=== PATIENT | male | born 1955 | race Native Hawaiian/Other Pacific Islander ===

== ENCOUNTER 2022-07-05 13:57 | Emergency (ER) | payer MEDICARE ==
--- NOTE | 2022-07-05 14:06 | ERPHSYRPT ---
- History of Present Illness Time Seen by Provider: 07/05/22 14:06 Source: patient Exam Limitations: no limitations Physician History: This is a 67-year-old white male patient who was brought into the emergency department by family member because of dizziness followed by lethargy since prior to evaluation in the emergency department. According to the patient and to the patient's spouse, the patient ate well last night and was his normal usual self and also woke up this morning and was himself and had an egg for breakfast. However, his noticed, prior to arrival, that he was out doors and wandering somewhat. When she brought him inside he said he was not feeling right and he stated he was just very tired. He did not fall or hit his head per his recollection. He is on no medication. He has not been prescribed any new medications. He was recently evaluated for "breathing problems". Patient does smoke approximately 1 pack of cigarettes to 1-1/2 pack of cigarettes per day. He denies illicit drug use. He has no chest pain. He has no abdominal pain. He has no nausea vomiting or diarrhea. The 2 symptoms he states he has are dizziness and fatigue Timing/Duration: today Severity: moderate Character of Deficits: none Deficits: no difficulties Baseline/Normal Cognition: alert oriented x 3 Current Cognition: alert oriented x 3 Baseline Gait: walks w/o assistance Associated Symptoms: fatigue Allergies/Adverse Reactions: No Known Drug Allergies Allergy (Verified 07/05/22 14:17) Home Medications: No Reportable Medications [No Reported Medications] 07/05/22 [History] Travel Risk - International Travel Have you traveled outside of the country in past 3 weeks: No - Coronavirus Screening Are you exhibiting any of the following symptoms?: No Close contact with a COVID-19 positive Pt in past 14-21 Days: No - Review of Systems Constitutional: Weakness Eyes: No Symptoms Ears, Nose, & Throat: Other Respiratory: No Symptoms Cardiac: No Symptoms Abdominal/Gastrointestinal: No Symptoms Genitourinary Symptoms: No Symptoms Musculoskeletal: No Symptoms Skin: No Symptoms Neurological: Dizziness, Lethargy Psychological: No Symptoms Endocrine: No Symptoms Hematologic/Lymphatic: No Symptoms Immunological/Allergic: No Symptoms All Other Systems: Reviewed and Negative - Past Medical History Pertinent Past Medical History: No - Past Surgical History Past Surgical History: Yes - Nursing Vital Signs Nursing Vital Signs: Initial Vital Signs Temperature 96.8 F 07/05/22 13:59 Pulse Rate 66 07/05/22 13:59 Respiratory Rate 29 H 07/05/22 13:59 Blood Pressure 105/71 07/05/22 13:59 O2 Sat by Pulse Oximetry 93 L 07/05/22 13:59 Pain Scale Pain Intensity 0 - [place] Coma Scale Best Eye Response (Ann): (3) open to voice Best Verbal Response ([place]): (5) oriented Best Motor Response ([place]): (6) obeys commands Ann Total: 14 - Physical Exam General Appearance: lethargy, thin Eye Exam: bilateral eye: normal inspection, PERRL, EOMI Ears, Nose, Throat Exam: dry mucous membranes Neck Exam: normal inspection, non-tender, supple, full range of motion Respiratory: normal breath sounds, lungs clear, airway intact, No chest tenderness, No respiratory distress Cardiovascular: regular rate/rhythm, normal heart sounds, normal peripheral pulses Gastrointestinal: soft, normal bowel sounds, No tenderness Rectal Exam: not done Back Exam: normal inspection, normal range of motion, No CVA tenderness, No vertebral tenderness Extremity Exam: normal inspection, normal range of motion, pelvis stable Mental Status: oriented x 3, cooperative, 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 07/05/22 14:11 Active Clean Catch Urine Specimen STAT Care 07/05/22 14:10 Active EKG-ER Only STAT Care 07/05/22 14:10 Active IV Insertion STAT Care 07/05/22 14:10 Active POCT Glucose Check STAT Care 07/05/22 14:10 Active HEAD WITHOUT CONTRAST [CT] Stat Exams 07/05/22 14:11 Completed ABG [ARTERIAL BLOOD GASES] Stat Lab 07/05/22 15:00 Completed CBC W DIFF Stat Lab 07/05/22 14:16 Completed CMP Stat Lab 07/05/22 14:16 Completed ETHYL ALCOHOL Stat Lab 07/05/22 14:16 Completed MAGNESIUM Stat Lab 07/05/22 14:16 Completed TROPONIN Q4H Lab 07/05/22 14:16 Completed TROPONIN Q4H Lab 07/05/22 18:15 Ordered TROPONIN Q4H Lab 07/05/22 22:15 Ordered UA W/RFX UR CULTURE Stat Lab 07/05/22 14:29 Completed Urine Triage Profile Stat Lab 07/05/22 14:29 Completed Medication Summary Discontinued Medications Generic Name Dose Route Start Last Admin Trade Name Freq PRN Reason Stop Dose Admin Sodium Chloride 1,000 mls @ 999 mls/hr 07/05/22 15:33 07/05/22 17:27 Sodium Chloride 0.9% 1000 Ml IV 07/05/22 16:33 Infused .Q1H1M STA Infusion Sodium Chloride Confirm 07/05/22 16:11 Sodium Chloride 0.9% 1000 Ml Administered 07/05/22 16:12 Dose 1,000 mls @ ud .[facility] Lab/Rad Data: Laboratory Result Diagrams 07/05/22 14:16 07/05/22 14:16 Laboratory Results 07/05/22 07/05/22 07/05/22 Range/Units 15:00 14:30 14:30 WBC (4.0-10.5) x10^3/uL RBC (4.1-5.6) x10^6/uL Hgb (12.5-18.0) g/dL Hct (42-50) % MCV (78-100) fL MCH (26-32) pg MCHC (32-36) g/dL RDW (11.5-14.0) % Plt Count (150-450) x10^3/uL MPV (7.5-11.0) fL Gran % (36.0-66.0) % Immature Gran % (Auto) (0.00-0.4) % Nucleat RBC Rel Count (0.00-0.1) % Eos # (Auto) (0-0.5) x10^3/uL Immature Gran # (Auto) (0.00-0.03) x10^3u/L Absolute Lymphs (auto) (1.0-4.6) x10^3/uL Absolute Monos (auto) (0.0-1.3) x10^3/uL Absolute Nucleated RBC (0.00-0.01) x10^3u/L Lymphocytes % (24.0-44.0) % Monocytes % (0.0-12.0) % Eosinophils % (0.00-5.0) % Basophils % (0.0-0.4) % Absolute Granulocytes (1.4-6.9) x10^3/uL Basophils # (0-0.4) x10^3/uL Puncture Site RIGHT BRACHIAL pCO2 41 (35-45) mmHg pO2 64 L (75-100) mmHg Base Excess 3.3 H (-2.0-2.0) O2 Saturation 88.4 L (94-100) g/dF ABG pH 7.44 (7.35-7.45) ABG HCO3 27.8 (22-28) ABG O2 Sat (Measured) 95.5 (95-100) % Xavi Test NOT APPLICABLE A-a Gradient 34 a/A Ratio 0.65 Hemoglobin 14.6 Carboxyhemoglobin 6.3 (0.0-6.9) % THgb Methemoglobin 1.1 L (1.4-1.5) % Temperature 37.0 C POC O2 Flow Rate 21 % Sodium (137-145) mmol/L Potassium 4.0 (3.5-5.1) mmol/L Chloride (98-107) mmol/L Carbon Dioxide (22-30) mmol/L Anion Gap (5-15) MEQ/L BUN (9-20) mg/dL Creatinine (0.66-1.25) mg/dL Estimated GFR ML/MIN Glucose (74-106) mg/dL Calcium (8.4-10.2) mg/dL Magnesium (1.6-2.3) mg/dL Total Bilirubin (0.2-1.3) mg/dL AST (17-59) U/L ALT (0-50) U/L Alkaline Phosphatase (38-126) U/L Ammonia < 9 L (9-30) umol/L Troponin I (0.000-0.034) ng/mL Serum Total Protein (6.3-8.2) g/dL Albumin (3.5-5.0) g/dL Urine Color (Yellow) Urine Appearance (Clear) Urine pH (4.6-8.0) Ur Specific [place] (1.005-1.030) Urine Protein (Negative) Urine Glucose (UA) (Negative) mg/dL Urine Ketones (Negative) Urine Blood (Negative) Urine Nitrite (Negative) Urine Bilirubin (Negative) Urine Urobilinogen (0.2) mg/dL Ur Leukocyte Esterase (Negative) U Hyaline Cast (Auto) (0-2) /LPF Urine Microscopic RBC (0-5) /HPF Urine Microscopic WBC (0-5) /HPF Ur Epithelial Cells (None Seen) /HPF Urine Bacteria (None Seen) /HPF Urine Culture Reflexed (NO) Urine Opiates Level (NEGATIVE) Ur Methadone (NEGATIVE) Urine Barbiturates (NEGATIVE) Ur Phencyclidine (PCP) (NEGATIVE) Urine Amphetamine (NEGATIVE) U Benzodiazepine Level (NEGATIVE) Urine Cocaine (NEGATIVE) Urine Marijuana (THC) (NEGATIVE) Ethyl Alcohol (0-10) mg/dL Influenza Type A Ag NEGATIVE (NEGATIVE) Influenza Type B Ag NEGATIVE (NEGATIVE) RSV (PCR) NEGATIVE (NEGATIVE) SARS-CoV-2 (PCR) NEGATIVE (NEGATIVE) 07/05/22 07/05/22 07/05/22 Range/Units 14:29 14:29 14:16 WBC (4.0-10.5) x10^3/uL RBC (4.1-5.6) x10^6/uL Hgb (12.5-18.0) g/dL Hct (42-50) % MCV (78-100) fL MCH (26-32) pg MCHC (32-36) g/dL RDW (11.5-14.0) % Plt Count (150-450) x10^3/uL MPV (7.5-11.0) fL Gran % (36.0-66.0) % Immature Gran % (Auto) (0.00-0.4) % Nucleat RBC Rel Count (0.00-0.1) % Eos # (Auto) (0-0.5) x10^3/uL Immature Gran # (Auto) (0.00-0.03) x10^3u/L Absolute Lymphs (auto) (1.0-4.6) x10^3/uL Absolute Monos (auto) (0.0-1.3) x10^3/uL Absolute Nucleated RBC (0.00-0.01) x10^3u/L Lymphocytes % (24.0-44.0) % Monocytes % (0.0-12.0) % Eosinophils % (0.00-5.0) % Basophils % (0.0-0.4) % Absolute Granulocytes (1.4-6.9) x10^3/uL Basophils # (0-0.4) x10^3/uL Puncture Site pCO2 (35-45) mmHg pO2 (75-100) mmHg Base Excess (-2.0-2.0) O2 Saturation (94-100) g/dF ABG pH (7.35-7.45) ABG HCO3 (22-28) ABG O2 Sat (Measured) (95-100) % Xavi Test A-a Gradient a/A Ratio Hemoglobin Carboxyhemoglobin (0.0-6.9) % THgb Methemoglobin (1.4-1.5) % Temperature C POC O2 Flow Rate % Sodium (137-145) mmol/L Potassium (3.5-5.1) mmol/L Chloride (98-107) mmol/L Carbon Dioxide (22-30) mmol/L Anion Gap (5-15) MEQ/L BUN (9-20) mg/dL Creatinine (0.66-1.25) mg/dL Estimated GFR ML/MIN Glucose (74-106) mg/dL Calcium (8.4-10.2) mg/dL Magnesium (1.6-2.3) mg/dL Total Bilirubin (0.2-1.3) mg/dL AST (17-59) U/L ALT (0-50) U/L Alkaline Phosphatase (38-126) U/L Ammonia (9-30) umol/L Troponin I < 0.012 (0.000-0.034) ng/mL Serum Total Protein (6.3-8.2) g/dL Albumin (3.5-5.0) g/dL Urine Color Yellow (Yellow) Urine Appearance Clear (Clear) Urine pH 7.5 (4.6-8.0) Ur Specific [place] 1.015 (1.005-1.030) Urine Protein Negative (Negative) Urine Glucose (UA) Negative (Negative) mg/dL Urine Ketones Negative (Negative) Urine Blood Negative (Negative) Urine Nitrite Negative (Negative) Urine Bilirubin Negative (Negative) Urine Urobilinogen 1.0 A (0.2) mg/dL Ur Leukocyte Esterase Small A (Negative) U Hyaline Cast (Auto) NONE SEEN (0-2) /LPF Urine Microscopic RBC 0-2 (0-5) /HPF Urine Microscopic WBC 3-5 (0-5) /HPF Ur Epithelial Cells None Seen (None Seen) /HPF Urine Bacteria None Seen (None Seen) /HPF Urine Culture Reflexed NO (NO) Urine Opiates Level NEGATIVE (NEGATIVE) Ur Methadone NEGATIVE (NEGATIVE) Urine Barbiturates NEGATIVE (NEGATIVE) Ur Phencyclidine (PCP) NEGATIVE (NEGATIVE) Urine Amphetamine NEGATIVE (NEGATIVE) U Benzodiazepine Level NEGATIVE (NEGATIVE) Urine Cocaine NEGATIVE (NEGATIVE) Urine Marijuana (THC) POSITIVE (NEGATIVE) Ethyl Alcohol (0-10) mg/dL Influenza Type A Ag (NEGATIVE) Influenza Type B Ag (NEGATIVE) RSV (PCR) (NEGATIVE) SARS-CoV-2 (PCR) (NEGATIVE) 07/05/22 07/05/22 Range/Units 14:16 14:16 WBC 11.7 H (4.0-10.5) x10^3/uL RBC 5.02 (4.1-5.6) x10^6/uL Hgb 14.8 (12.5-18.0) g/dL Hct 43.5 (42-50) % MCV 86.7 (78-100) fL MCH 29.5 (26-32) pg MCHC 34.0 (32-36) g/dL RDW 13.7 (11.5-14.0) % Plt Count 318 (150-450) x10^3/uL MPV 9.2 (7.5-11.0) fL Gran % 69.0 H (36.0-66.0) % Immature Gran % (Auto) 0.7 H (0.00-0.4) % Nucleat RBC Rel Count 0.0 (0.00-0.1) % Eos # (Auto) 0.15 (0-0.5) x10^3/uL Immature Gran # (Auto) 0.08 H (0.00-0.03) x10^3u/L Absolute Lymphs (auto) 2.33 (1.0-4.6) x10^3/uL Absolute Monos (auto) 1.04 (0.0-1.3) x10^3/uL Absolute Nucleated RBC 0.00 (0.00-0.01) x10^3u/L Lymphocytes % 19.8 L (24.0-44.0) % Monocytes % 8.9 (0.0-12.0) % Eosinophils % 1.3 (0.00-5.0) % Basophils % 0.3 (0.0-0.4) % Absolute Granulocytes 8.10 H (1.4-6.9) x10^3/uL Basophils # 0.04 (0-0.4) x10^3/uL Puncture Site pCO2 (35-45) mmHg pO2 (75-100) mmHg Base Excess (-2.0-2.0) O2 Saturation (94-100) g/dF ABG pH (7.35-7.45) ABG HCO3 (22-28) ABG O2 Sat (Measured) (95-100) % Xavi Test A-a Gradient a/A Ratio Hemoglobin Carboxyhemoglobin (0.0-6.9) % THgb Methemoglobin (1.4-1.5) % Temperature C POC O2 Flow Rate % Sodium 136 L (137-145) mmol/L Potassium 4.2 (3.5-5.1) mmol/L Chloride 101 (98-107) mmol/L Carbon Dioxide 28 (22-30) mmol/L Anion Gap 11.8 (5-15) MEQ/L BUN 12 (9-20) mg/dL Creatinine 0.76 (0.66-1.25) mg/dL Estimated GFR > 60.0 ML/MIN Glucose 134 H (74-106) mg/dL Calcium 9.1 (8.4-10.2) mg/dL Magnesium 2.0 (1.6-2.3) mg/dL Total Bilirubin 0.40 (0.2-1.3) mg/dL AST 22 (17-59) U/L ALT 17 (0-50) U/L Alkaline Phosphatase 53 (38-126) U/L Ammonia (9-30) umol/L Troponin I (0.000-0.034) ng/mL Serum Total Protein 7.4 (6.3-8.2) g/dL Albumin 4.2 (3.5-5.0) g/dL Urine Color (Yellow) Urine Appearance (Clear) Urine pH (4.6-8.0) Ur Specific [place] (1.005-1.030) Urine Protein (Negative) Urine Glucose (UA) (Negative) mg/dL Urine Ketones (Negative) Urine Blood (Negative) Urine Nitrite (Negative) Urine Bilirubin (Negative) Urine Urobilinogen (0.2) mg/dL Ur Leukocyte Esterase (Negative) U Hyaline Cast (Auto) (0-2) /LPF Urine Microscopic RBC (0-5) /HPF Urine Microscopic WBC (0-5) /HPF Ur Epithelial Cells (None Seen) /HPF Urine Bacteria (None Seen) /HPF Urine Culture Reflexed (NO) Urine Opiates Level (NEGATIVE) Ur Methadone (NEGATIVE) Urine Barbiturates (NEGATIVE) Ur Phencyclidine (PCP) (NEGATIVE) Urine Amphetamine (NEGATIVE) U Benzodiazepine Level (NEGATIVE) Urine Cocaine (NEGATIVE) Urine Marijuana (THC) (NEGATIVE) Ethyl Alcohol < 10 (0-10) mg/dL Influenza Type A Ag (NEGATIVE) Influenza Type B Ag (NEGATIVE) RSV (PCR) (NEGATIVE) SARS-CoV-2 (PCR) (NEGATIVE) - Progress Progress: improved Progress Note: 07/05/22 15:[address] of head without contrast. Radiology gave the impression and I reviewed the impression. 07/05/22 18:29 This patient is now awake alert and oriented. The medical issues of moderate complexity. The medical complexity and the work-up performed is based on review of the patient's past medical history, medication list, drug allergy list, history of present illness and physical findings on examination. The work-up performed was placement of intravenous line, infusion of 1 L normal saline, twelve-lead EKG, CBC, CMP, ABG, urinalysis, viral swabs, urine triage/drug screen, CT scan of the head without contrast. I reviewed all of the results of the work-up. The only abnormality is the presence of THC in the urine. When questioned the patient did use a CBD gummy last evening to help him sleep. He says he has never had a reaction to this CBD gummy. Patient tolerated a liquid on his own. He states that he is ready to go home. He was recently told that he had emphysema based on a chest x-ray finding. Discharge instructions is to have him follow-up with his primary care doctor/nurse practitioner to be referred to client finance analyst for further evaluation management. Counseled pt/family regarding: lab results, diagnosis, need for follow-up, rad results, smoking cessation Medical Desision Making - Independent Historian Additional History obtained from: Spouse - Discussion of managment Agreed on:: Treatment plan, need for follow-up - Diagnostic Testing Diagnostic test were ordered, analyzed, and reviewed by me: Yes Radiological Interpretation: Reviewed by me, Teleradiologist Report - Risk of complications Low Risk: Low risk of morbidity from additional dx testing or treatment - Departure Departure Disposition: Home Clinical Impression: Side effect of drug Condition: Stable Critical Care Time: No Referrals: DOCTOR,NO FAMILY [Primary Care Provider] - Follow up/PCP as directed Additional Instructions: Drink plenty of clear liquids before advancing your diet. Stop smoking. Call your primary provider tomorrow morning, 07/06/2022, to be referred to a client finance analyst/lung specialist for further work-up of lung issues and to provide further management.
[2022-07-05 14:17] LABS: BASOPHIL % 0.3 % (0.0-0.4); Basophil (Absolute #) 0.04 x10^3/uL (0-0.4); Eosinophil % 1.3 % (0.00-5.0); Eosinophil (Absolute #) 0.15 x10^3/uL (0-0.5); Hematocrit 43.5 % (42-50); Hemoglobin 14.8 g/dL (12.5-18.0); IMMATURE GRAN # 0.08 x10^3u/L (0.00-0.03); IMMATURE GRAN % 0.7 % (0.00-0.4); Lymphocyte (Absolute #) 2.33 x10^3/uL (1.0-4.6); Lymphocytes % 19.8 % (24.0-44.0); Mean Cell Volume 86.7 fL (78-100); Mean Corpuscular Hemoglobin 29.5 pg (26-32); Mean Platelet Volume 9.2 fL (7.5-11.0); Monocyte (Absolute #) 1.04 x10^3/uL (0.0-1.3); Monocytes % 8.9 % (0.0-12.0); Platelet Count 318 x10^3/uL (150-450); Red Blood Count 5.02 x10^6/uL (4.1-5.6); Red Cell Distribution Width 13.7 % (11.5-14.0); White Blood Count 11.7 x10^3/uL (4.0-10.5)
[2022-07-05 14:30] LABS: ALBUMIN 4.2 g/dL (3.5-5.0); ALKALINE PHOSPHATASE 53 U/L (38-126); ANION GAP 11.8 MEQ/L (5-15); BLOOD UREA NITROGEN 12 mg/dL (9-20); CHLORIDE 101 mmol/L (98-107); Calcium 9.1 mg/dL (8.4-10.2); Carbon Dioxide 28 mmol/L (22-30); Creatinine 1 0.76 mg/dL (0.66-1.25); EST GLOMERULAR FILTRATION RATE > 60.0 ML/MIN; ETHYL ALCOHOL < 10 mg/dL (0-10); Glucose 134 mg/dL (74-106); Potassium 4.2 mmol/L (3.5-5.1); SGOT/AST 22 U/L (17-59); SGPT/ALT 17 U/L (0-50); SODIUM 136 mmol/L (137-145); Total Protein 7.4 g/dL (6.3-8.2)
--- NOTE | 2022-07-05 14:48 | XRAY ---
Indication: Lethargy and weakness. Multiple contiguous axial images obtained through the head without contrast. Comparison: None Normal appearing brain parenchyma, ventricles, and bony calvarium for patient's age. Visualized paranasal sinuses and mastoid air cells are clear. Impression: Normal CT head without contrast exam.
[2022-07-05 14:49] LABS: ADD URINE CULTURE? NO (NO); Appearance Clear (Clear); Bacteria None Seen /HPF (None Seen); Bilirubin Negative (Negative); Blood Negative (Negative); Epithelial Cells None Seen /HPF (None Seen); Glucose, Urine Negative (Negative); Hyaline Casts NONE SEEN /LPF (0-2); Ketones Negative (Negative); Leukocyte Esterase Small (Negative); Nitrite Negative (Negative); Ph 7.5 (4.6-8.0); Protein,Urine Dip Negative (Negative); RBC 0-2 /HPF (0-5); Specific Gravity 1.015 (1.005-1.030)
[2022-07-05 15:03] LABS: INFLUENZA A NEGATIVE (NEGATIVE); INFLUENZA B NEGATIVE (NEGATIVE); RESPIRATORY SYNCTIAL VIRUS NEGATIVE (NEGATIVE); SARS-CoV-2 Xpert Express NEGATIVE (NEGATIVE)
[2022-07-05 15:11] LABS: A-aADO2 34; ABG HEMOGLOBIN 14.6; ARTERIAL BLD GAS O2 SATURATION 95.5 % (95-100); ARTERIAL BLOOD GAS BASE EXCESS 3.3 (-2.0-2.0); ARTERIAL BLOOD GAS FIO2 21 %; ARTERIAL BLOOD GAS PCO2 41 mmHg (35-45); ARTERIAL BLOOD GAS PO2 64 mmHg (75-100); ARTERIAL BLOOD GAS pH 7.44 (7.35-7.45); CARBOXYHEMOGLOBIN 6.3 % THgb (0.0-6.9); HCO3- 27.8 (22-28); HGB O2 SAT 88.4 g/dF (94-100); Methhemoglobin 1.1 % (1.4-1.5); paO2 pAO1 0.65
[2022-07-05 15:13] LABS: ABG SITE RIGHT BRACHIAL
[2022-07-05 15:23] LABS: Amphetamine,Urine NEGATIVE (NEGATIVE); Barbiturate,Urine NEGATIVE (NEGATIVE); Benzodiazepine,Urine NEGATIVE (NEGATIVE); Cocaine,Urine NEGATIVE (NEGATIVE); Methadone,Urine NEGATIVE (NEGATIVE); Opiate,Urine NEGATIVE (NEGATIVE); PCP,Urine NEGATIVE (NEGATIVE); THC,Urine POSITIVE (NEGATIVE)
[2022-07-05] MEDS ORDERED: Sodium Chloride 0.9% 1000 ML 1,000 ML IV STA (15:33)
[2022-07-05] MEDS ORDERED: Sodium Chloride 0.9% 1000 ML 1,000 ML ONE (16:11)
[2022-07-05 16:33] VITALS: BP 139/82; PULSE 61; O2SAT 95
== END 2022-07-05 18:49 | disposition home or self-care (01) ==
LOC: ED 13:57
DX: R53.83 Other fatigue (principal); T40.715A Adverse effect of cannabis, initial encounter; R42 Dizziness and giddiness; Z72.0 Tobacco use
CPT/HCPCS: 0241U; 36000; 36415; 36600; 70450; 80053; 80307; 81001; 82077; 82140; 82375; 82803; 83735; 84484; 85025; 93005; 93041; 96360; 99284

== ENCOUNTER 2023-08-15 13:06 | Emergency (ER) | payer MEDICARE ==
--- NOTE | 2023-08-15 13:13 | ERPHSYRPT ---
- History of Present Illness Time Seen by Provider: 08/15/23 13:13 Source: patient Exam Limitations: no limitations Physician History: This is a 68-year-old white male patient who has a left upper extremity PICC line placed and has been present for about a week per his report. He is getting injections of Invanz to treat a pneumonia. While the PICC line is functioning well/normally, he is complaining of heaviness in the left arm and pain at the site of exit of the PICC line. He is not short of breath. He has no cough. He denies chest pain. Patient does have a history of COPD and emphysema. In addition he has a history of hyperlipidemia and gastroesophageal reflux disease. He does not have a fever. Timing/Duration: today Severity: mild Associated Symptoms: denies symptoms Allergies/Adverse Reactions: bupropion [From Wellbutrin] Adverse Reaction (Severe, Verified 08/15/23 13:18) Home Medications: Albuterol Sulfate [Albuterol Sulfate Hfa] 0 gm IH Q4H PRN PRN 08/14/23 [History] Atorvastatin Calcium [Lipitor 40Mg] 40 mg PO DAILY 08/14/23 [History] Fluticasone/Umeclidin/Vilanter [Trelegy Ellipta 200-62.5-25] 1 each IH DAILY 08/14/23 [History] Montelukast Sodium 10 mg [Singulair 10 MG] 10 mg PO DAILY 08/14/23 [History] PANTOPRAZOLE 40 mg Tablet [Protonix 40MG Tablet] 40 mg PO QAM 08/14/23 [History] Tamsulosin HCl 0.4 mg [Flomax 0.4 MG] 0.4 mg PO DAILY 08/14/23 [History] Hx Influenza Vaccination/Date Given: No Hx Pneumococcal Vaccination/Date Given: No Travel Risk - International Travel Have you traveled outside of the country in past 3 weeks: No - Emerging Infectious Disease Are you exhibiting symptoms associated with any current EIDs: No - Review of Systems Constitutional: No Symptoms Eyes: No Symptoms Ears, Nose, & Throat: No Symptoms Respiratory: No Symptoms Cardiac: No Symptoms Abdominal/Gastrointestinal: No Symptoms Genitourinary Symptoms: No Symptoms Musculoskeletal: Other (Left upper extremity feels a little heavy per his report) Skin: Other (Tenderness under the skin at the exit site of the PICC line in the left antecubital fossa) Neurological: No Symptoms Psychological: No Symptoms Endocrine: No Symptoms Hematologic/Lymphatic: No Symptoms Immunological/Allergic: No Symptoms All Other Systems: Reviewed and Negative - Past Medical History Pertinent Past Medical History: No Neurological History: No Pertinent History ENT History: No Pertinent History Cardiac History: Aneurysm Respiratory History: COPD, Emphysema Endocrine Medical History: No Pertinent History Musculoskeletal History: No Pertinent History GI Medical History: GERD Psycho-Social History: No Pertinent History Male Reproductive Disorders: Prostate Problems Other Medical History: aortic anuerysm, PET scan shows nodules in lung - Past Surgical History Past Surgical History: Yes Neuro Surgical History: No Pertinent History Cardiac: No Pertinent History Respiratory: No Pertinent History Gastrointestinal: No Pertinent History Genitourinary: No Pertinent History Musculoskeletal: No Pertinent History Male Surgical History: No Pertinent History Other Surgical History: prostate, attempted lung biopsy lung washings, - Social History Smoking Status: Former smoker How long have you smoked: 55 Exposure to second hand smoke: No Drug Use: none Patient Lives Alone: No - Nursing Vital Signs Nursing Vital Signs: Initial Vital Signs Blood Pressure 122/77 08/15/23 13:17 O2 Sat by Pulse Oximetry 98 08/15/23 13:17 Pain Scale Pain Intensity 0 - Physical Exam General Appearance: no apparent distress, alert Eye Exam: PERRL/EOMI, eyes nml inspection Ears, Nose, Throat Exam: normal ENT inspection, moist mucous membranes Neck Exam: normal inspection, non-tender, supple, full range of motion Respiratory Exam: normal breath sounds, lungs clear, airway intact, No chest tenderness, No respiratory distress Cardiovascular Exam: regular rate/rhythm, normal heart sounds, normal peripheral pulses Gastrointestinal/Abdomen Exam: soft, normal bowel sounds, No tenderness Rectal Exam: not done Back Exam: normal inspection, normal range of motion, No CVA tenderness, No vertebral tenderness Extremity Exam: normal inspection, normal range of motion, pelvis stable, swelling (Patient feels swelling. No significant swelling visible when I compare the 2 arms.), tenderness (At the antecubital fossa site of PICC line exit. No cellulitis present.) Neurologic Exam: alert, oriented x 3, cooperative, chemical machine tender II-XII nml as tested, normal mood/affect, nml cerebellar function, nml station & gait, sensation nml Skin Exam: normal color, warm, dry Lymphatic Exam: No adenopathy SpO2 Interpretation: normal O2 Delivery: Room Air - Course Nursing assessment & vital signs reviewed: Yes Ordered Tests: Active Orders 24 hr Category Date Time Status VENOUS UNILAT/LIMITED EXTREMIT [US] Stat Exams 08/15/23 13:30 Completed Medication Summary Generic Name Dose Route Start Last Admin Trade Name Freq PRN Reason Stop Dose Admin Heparin Sodium (Beef Lung) 500 units 08/15/23 15:03 08/15/23 15:06 Heparin Lock Flush Pf 500 Units/5 Ml Syringe PICC 09/14/23 15:02 500 units PRN PRN Administration IV PORT FLUSH Discontinued Medications Generic Name Dose Route Start Last Admin Trade Name Freq PRN Reason Stop Dose Admin Enoxaparin Sodium 70 mg 08/15/23 14:39 08/15/23 14:59 Enoxaparin Sodium 80 Mg/0.8 Ml Syringe SQ 08/15/23 14:40 70 mg STAT ONE Administration Enoxaparin Sodium Confirm 08/15/23 14:57 Enoxaparin Sodium 80 Mg/0.8 Ml Syringe Administered 08/15/23 14:58 Dose 80 mg SQ .[facility] ONE - Progress Progress: unchanged Progress Note: 08/15/23 14:47 My medical decision making and the assignment of low to moderate complexity in this patient's medical issue today is based on review the patient's past medical history, review the patient's medication list, review of patient drug allergy list, history present illness and physical findings on examination. The workup in this patient includes venous Doppler of the left upper extremity to evaluate for DVT. I will not provide the patient with any additional antibiotics as he is on Invanz at this time. It is not always necessary to remove the PICC line in the face of a small area of DVT. The venous Doppler ultrasound was performed and the bread panner/technologist reported to me that this is a positive for short segment DVT. The PICC line catheter appears to be functioning normally. He has received his antibiotic treatment today. We will remotely send a prescription for Lovenox for twice daily subcutaneous injections and make arrangements for follow-up appointment with his primary care provider to change his medications to oral anticoagulation treatment. They will make decision as to whether or not the catheter needs to be removed. I recommended to the patient to hold on any further use of this catheter until the decision is made by whomever directed placement of this catheter regarding staying and or being removed. 08/15/23 15:24 We obtained an appointment to see his nurse practitioner tomorrow, 08/16/2023 at noon. I am remotely sending a prescription for 2 doses of Lovenox to be given subcutaneously. His nurse practitioner will make the decision on whether or not to continue using the PICC line and or having it removed. In addition his nurse practitioner will determine what anticoagulant therapy patient will continue using. Counseled pt/family regarding: diagnosis, need for follow-up, rad results Medical Desision Making - Independent Historian Additional History obtained from: Spouse - Diagnostic Testing Diagnostic test were ordered, analyzed, and reviewed by me: Yes Radiological Interpretation: Reviewed by me, Teleradiologist Report - Risk of complications The pt has a mod risk of morbidity or mortality based on: Need for prescription drug management - Departure Departure Disposition: Home Clinical Impression: Deep vein thrombosis (DVT) of brachial vein Condition: Stable Critical Care Time: No Referrals: DOCTOR,NO FAMILY [NON-STAFF PHY W/O PRIVILEGES] - Follow up/PCP as directed Additional Instructions: Continue the PICC line care. Hold on using the PICC line until after you are seen and evaluated by your nurse practitioner tomorrow, 08/16/2023, at your noon appointment. Give injection of Lovenox at 10:00 tonight, 08/15/2023, subcutaneously. Repeat the same dose of Lovenox at 10 AM tomorrow morning, 08/16/2023 subcutaneously Prescriptions: Enoxaparin Sodium [Lovenox] 70 mg SQ UD #2 units MDD 1
[2023-08-15 13:27] VITALS: RESP 18; TEMP 98.5
--- NOTE | 2023-08-15 14:55 | XRAY ---
Indication: Left upper extremity pain and heaviness. Status post PICC line placement. Two-dimensional sonogram and color Doppler imaging major venous vessels left upper extremity performed. Comparison: None Left brachial vein demonstrates occluding thrombus. No thrombus seen in the remaining visualized left jugular, subclavian, axillary, basilic, cephalic, radial, and ulnar veins. Patent veins demonstrate normal compressibility and normal venous waveforms. Impression: Occluding DVT brachial vein.
[2023-08-15] MEDS ORDERED: ENOXAPARIN SODIUM SQ ONE (14:57)
[2023-08-15] MEDS: ENOXAPARIN SODIUM SQ ONE (14:59)
[2023-08-15 15:05] VITALS: O2SAT 96
[2023-08-15 15:40] VITALS: BP 102/67; PULSE 64
== END 2023-08-15 15:45 | disposition home or self-care (01) ==
LOC: ED 13:06
DX: I82.622 Acute embolism and thrombosis of deep veins of left upper extremity (principal); E78.5 Hyperlipidemia, unspecified; Z79.01 Long term (current) use of anticoagulants; Z79.899 Other long term (current) drug therapy
CPT/HCPCS: 93971; 96372; 99282; J1642; J1650

== ENCOUNTER 2023-10-12 17:47 | Emergency (ER) | payer MEDICARE ==
--- NOTE | 2023-10-12 17:55 | ERPHSYRPT ---
- History of Present Illness Time Seen by Provider: 10/12/23 17:54 Source: patient, family Exam Limitations: no limitations Physician History: This is a 68-year-old white male patient who went to urgent care primarily to have his left upper extremity evaluated for possible DVT and/or retained foreign body. Patient is convinced that the hand IV catheter "broke off" and he is concerned because of tenderness in the distribution of his veins in the left hand, dorsal aspect are tender. He also has tenderness in the area of the antecubital fossa. Patient has a history of DVT of his legs in the past. He is no longer on Coumadin or any other anticoagulation medication. Patient has a history of gastroesophageal reflux disease, prostate issues, COPD and hyperlipidemia. Patient was brought to us because we were told he has shortness of breath. Patient had a room air oxygen saturation level of 92 to 94%. However, he wears 3 L of oxygen via nasal cannula and forgot his oxygen at home. He specifically states he is not concerned about his shortness of breath. We placed 2 L of oxygen on him via nasal cannula and he increased to 98% and he is in no distress. He denies chest pain. Timing/Duration: day(s) (4 days) Activities at Onset: none Severity of Dyspnea-Max: none Severity of Dyspnea-Current: none Possible Cause: frequent episodes Modifying Factors: Improves With: nothing Associated Symptoms: denies symptoms Allergies/Adverse Reactions: apixaban [From Eliquis] Allergy (Verified 10/12/23 17:50) bupropion [From Wellbutrin] Adverse Reaction (Severe, Verified 10/12/23 17:50) Home Medications: Albuterol Sulfate [Albuterol Sulfate Hfa] 0 gm IH Q4H PRN PRN 08/14/23 [History] Fluticasone/Umeclidin/Vilanter [Trelegy Ellipta 200-62.5-25] 1 each IH DAILY 08/14/23 [History] Montelukast Sodium 10 mg [Singulair 10 MG] 10 mg PO DAILY 08/14/23 [History] PANTOPRAZOLE 40 mg Tablet [Protonix 40MG Tablet] 40 mg PO QAM 08/14/23 [History] Tamsulosin HCl 0.4 mg [Flomax 0.4 MG] 0.4 mg PO DAILY 08/14/23 [History] Itraconazole 2 cap PO TID 10/12/23 [History] Hx Tetanus, Diphtheria Vaccination/Date Given: Yes Hx Influenza Vaccination/Date Given: No Hx Pneumococcal Vaccination/Date Given: No Travel Risk - International Travel Have you traveled outside of the country in past 3 weeks: No - Emerging Infectious Disease Are you exhibiting symptoms associated with any current EIDs: No - Review of Systems Constitutional: No Symptoms Eyes: No Symptoms Ears, Nose, & Throat: No Symptoms Respiratory: No Symptoms Cardiac: No Symptoms Abdominal/Gastrointestinal: No Symptoms Genitourinary Symptoms: No Symptoms Musculoskeletal: Other (Tenderness dorsal aspect left hand and left antecubital fossa region) Skin: No Symptoms, No Cellulitis Neurological: No Symptoms Psychological: No Symptoms Endocrine: No Symptoms Hematologic/Lymphatic: No Symptoms Immunological/Allergic: No Symptoms All Other Systems: Reviewed and Negative - Past Medical History Pertinent Past Medical History: No Neurological History: No Pertinent History ENT History: No Pertinent History Cardiac History: Aneurysm Respiratory History: COPD, Emphysema Endocrine Medical History: No Pertinent History Musculoskeletal History: No Pertinent History GI Medical History: GERD Psycho-Social History: No Pertinent History Male Reproductive Disorders: Prostate Problems Other Medical History: aortic anuerysm, PET scan shows nodules in lung - Past Surgical History Past Surgical History: Yes Neuro Surgical History: No Pertinent History Cardiac: No Pertinent History Respiratory: No Pertinent History Gastrointestinal: No Pertinent History Genitourinary: No Pertinent History Musculoskeletal: No Pertinent History Male Surgical History: No Pertinent History Other Surgical History: prostate, attempted lung biopsy lung washings, - Social History Smoking Status: Former smoker How long have you smoked: 55 Exposure to second hand smoke: No Drug Use: none Patient Lives Alone: No - Social Determinants of Health Will the patient participate in the screening: Yes Do you worry about a steady place to live?: No In the past 12 months,have you had to go without utilities?: No Transportation Issues: No Has anyone in your support network made you feel unsafe?: No Have you or anyone in your house had to go without enough: No - Nursing Vital Signs Nursing Vital Signs: Initial Vital Signs Temperature 98 F 10/12/23 17:48 Pulse Rate 96 H 10/12/23 17:48 Respiratory Rate 24 10/12/23 17:48 Blood Pressure 111/82 10/12/23 17:48 O2 Sat by Pulse Oximetry 94 L 10/12/23 17:48 Pain Scale Pain Intensity 0 - Physical Exam General Appearance: no apparent distress, alert, anxiety, thin Eye Exam: PERRL/EOMI, eyes nml inspection Ears, Nose, Throat Exam: hearing grossly normal, normal ENT inspection, normal pharynx Neck Exam: normal inspection, non-tender, supple, full range of motion Respiratory Exam: normal breath sounds, lungs clear, airway intact, No chest tenderness, No respiratory distress Cardiovascular/Chest Exam: normal heart sounds, regular rate/rhythm Abdominal/Gastrointestinal Exam: soft, normal bowel sounds, No tenderness Rectal Exam: not done Extremity Exam: non-tender, normal range of motion, normal inspection, normal capillary refill, no calf tenderness, no pedal edema, pelvis stable, swelling (Mild in the region of the dorsal aspect of the left hand and antecubital fossa.) Neurologic Exam: alert, oriented x 3, cooperative, area intelligence technician II-XII nml as tested, nml cerebellar function, nml station & gait, sensation nml Skin Exam: normal color, warm, dry Lymphatic Exam: No adenopathy SpO2 Interpretation: normal O2 Delivery: Room Air - Course Nursing assessment & vital signs reviewed: Yes Ordered Tests: Medication Summary Discontinued Medications Generic Name Dose Route Start Last Admin Trade Name Freq PRN Reason Stop Dose Admin Enoxaparin Sodium 70 mg 10/12/23 18:31 Enoxaparin Sodium 80 Mg/0.8 Ml Syringe SQ 10/12/23 18:32 STAT ONE - Progress Progress: unchanged Air Movement: good Progress Note: 10/12/23 18:36 My medical decision making and the assignment of low complexity to this patient's medical issue today is based on review of the patient's past medical history, review of the patient's medication list, review of patient drug allergy list, history present illness and physical findings on examination. The workup today that was performed was a twelve-lead EKG. However the the patient states he is not short of breath his oxygen saturation levels are low because he is not on his oxygen. He specifically states he is not concerned about his low oxygen saturation level. Since we put him on 2 L of oxygen, patient is ordinarily on 3 L of oxygen via nasal cannula, his room air oxygen saturation level went up to 98%. Patient is mostly concerned about the tenderness in the area of the former IV line placed in the dorsal aspect of the left hand. I think the patient has a superficial phlebitis and we will provide him with a single subcutaneous dose of Lovenox and arrange an outpatient venous Doppler of left upper extremity for 10/13/2023. Blood Culture(s) Obtained: No Antibiotics given: No Counseled pt/family regarding: diagnosis, need for follow-up Medical Desision Making - Independent Historian Additional History obtained from: Spouse - Diagnostic Testing Diagnostic test were ordered, analyzed, and reviewed by me: No - Risk of complications Low Risk: Low risk of morbidity from additional dx testing or treatment - Departure Departure Disposition: Home Clinical Impression: Superficial thrombophlebitis of arm Condition: Stable Critical Care Time: No Referrals: SHANELLE LERNER TETRYL [employer]ING TUB OPERATOR [Primary Care Provider] - Follow up/PCP as directed Additional Instructions: Follow-up at the radiology department tomorrow, 10/13/2023 at 9:15 AM to undergo venous Doppler of your left upper extremity. Do not leave the radiology department until you are aware of what the final read is. Report will be sent to Shanelle Jaramillo. The report will also be sent to the emergency department. Take all your other medications as prescribed.
[2023-10-12 18:08] VITALS: TEMP 98
[2023-10-12] MEDS ORDERED: ENOXAPARIN SODIUM SQ ONE (18:36)
[2023-10-12] MEDS: ENOXAPARIN SODIUM SQ ONE (18:37)
[2023-10-12 18:58] VITALS: BP 114/70; PULSE 67; RESP 18; O2SAT 98
== END 2023-10-12 18:55 | disposition home or self-care (01) ==
LOC: ED 17:47
DX: I80.8 Phlebitis and thrombophlebitis of other sites (principal); R60.0 Localized edema; M79.642 Pain in left hand; R06.02 Shortness of breath; E78.5 Hyperlipidemia, unspecified; Z79.899 Other long term (current) drug therapy
CPT/HCPCS: 96372; 99281; J1650

== ENCOUNTER 2023-10-13 10:26 | Emergency (ER) | payer MEDICARE ==
[2023-10-13 11:58] LABS: Hematocrit 35.8 % (40.1-51.0); Hemoglobin 11.4 g/dL (13.7-17.5); Mean Cell Volume 81.5 fL (79.0-92.2); Mean Corpuscular Hgb Concent. 31.8 g/dL (32.3-36.5); Mean Platelet Volume 8.7 fL (9.4-12.4); Platelet Count 421 x10^3/uL (163-337); Red Blood Count 4.39 x10^6/uL (4.63-6.08); Red Cell Distribution Width 17.4 % (11.6-14.4); White Blood Count 11.2 x10^3/uL (4.23-9.07)
[2023-10-13 12:11] LABS: ALBUMIN 3.5 g/dL (3.5-5.0); ANION GAP 9.1 MEQ/L (5-15); BILIRUBIN,TOTAL 0.2 mg/dL (0.2-1.3); Calcium 9.2 mg/dL (8.4-10.2); Creatinine 1 0.71 mg/dL (0.66-1.25); EST GLOMERULAR FILTRATION RATE 100.6 ML/MIN; Potassium 4.4 mmol/L (3.5-5.1)
[2023-10-13 12:15] LABS: INR 1.07 (0.8-3.0); PROTIME 11.6 SECONDS (9.4-12.5); PTT 28.6 SECONDS (25.1-36.5)
--- NOTE | 2023-10-13 13:07 | ERPHSYRPT ---
- History of Present Illness Time Seen by Provider: 10/13/23 11:44 Source: patient, family Exam Limitations: no limitations Patient Subjective Stated Complaint: left arm pain, DVT Triage Nursing Assessment: 68 yr old male pt arrives to ED via POV with his significant other. Pt is ambulatory to room 9. Pt presents with confirmed DVT in his left arm after his scan this morning. Pt believes that he may also have one in his right arm as well. Pt states that he was recently admitted to [facility] ICU due to low blood pressure and he was just released a couple days ago. Pt is SOB on arrival and states that he is now wearing 2L of O2 at all times instead of just at night. Pt placed on 2L and respirations are now easy and O2 sats are in the mid 90's. Pt is alert, oriented and not in distress. Pt is denying pain at this time. 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 Patient was seen in this ER yesterday for swelling and pain left elbow/forearm area. He was given Lovenox shot and ultrasound was ordered for today which is positive for occluding thrombi and basilic vein and nonoccluding thrombi in the cephalic vein and also superficial thrombi on the posterior hand vein. Patient has no difficulty breathing but what he has at his baseline. Oxygen saturation on 3 L is 98%. Lungs fairly clear to auscultation. Has white count 11, Hb 11, chemistries fairly unremarkable and platelets of 421. INR 1.08. I have discussed with Dr. Harper patient's PCP/recruiting consultant who saw patient yesterday and discharged from [facility], reviewed ultrasound findings, recommended restarting on Coumadin and outpatient follow-up. Dr. Hanley's office will call patient to schedule outpatient appointments for Coumadin recheck. I have given a dose of Lovenox in here. Since this is a superficial vein thrombosis, Dr. Drew does not think patient needs to be bridged. I would continue with Coumadin, have my Coumadin clinic pharmacist come down and talk to patient and he is okay with if patient wished to follow-up with Coumadin clinic here versus going to [facility]. Patient will decide this later. Discussed signs symptoms of worsening needing return to ER which she seems understanding. Allergies/Adverse Reactions: apixaban [From Eliquis] Allergy (Verified 10/13/23 11:31) bupropion [From Wellbutrin] Adverse Reaction (Severe, Verified 10/13/23 11:31) Iodinated Contrast Media Adverse Reaction (Mild, Verified 10/13/23 11:45) Hives Home Medications: Albuterol Sulfate [Albuterol Sulfate Hfa] 0 gm IH Q4H PRN PRN 08/14/23 [History] Fluticasone/Umeclidin/Vilanter [Trelegy Ellipta 200-62.5-25] 1 each IH DAILY 08/14/23 [History] Montelukast Sodium 10 mg [Singulair 10 MG] 10 mg PO DAILY 08/14/23 [History] PANTOPRAZOLE 40 mg Tablet [Protonix 40MG Tablet] 40 mg PO QAM 08/14/23 [History] Tamsulosin HCl 0.4 mg [Flomax 0.4 MG] 0.4 mg PO DAILY 08/14/23 [History] Itraconazole 2 cap PO TID 10/12/23 [History] Prednisone 10 mg [Deltasone 10 mg] 10 mg PO DAILY 10/13/23 [History] Hx Tetanus, Diphtheria Vaccination/Date Given: Yes Hx Influenza Vaccination/Date Given: Yes Hx Pneumococcal Vaccination/Date Given: No Travel Risk - International Travel Have you traveled outside of the country in past 3 weeks: No - Emerging Infectious Disease Are you exhibiting symptoms associated with any current EIDs: No Symptoms: Shortness of Breath - Review of Systems Constitutional: No Symptoms Ears, Nose, & Throat: No Symptoms Respiratory: Cough, Dyspnea, Dyspnea on Exertion (CABRERA) Cardiac: No Symptoms Abdominal/Gastrointestinal: No Symptoms Musculoskeletal: Myalgias Skin: Skin Lesions Neurological: No Symptoms Hematologic/Lymphatic: Blood Clots Immunological/Allergic: No Symptoms - Past Medical History Pertinent Past Medical History: No Neurological History: No Pertinent History ENT History: No Pertinent History Cardiac History: Aneurysm Respiratory History: COPD, Emphysema Endocrine Medical History: No Pertinent History Musculoskeletal History: No Pertinent History GI Medical History: GERD Psycho-Social History: No Pertinent History Male Reproductive Disorders: Prostate Problems Other Medical History: aortic anuerysm, PET scan shows nodules in lung, DVT in left arm - Past Surgical History Past Surgical History: Yes Neuro Surgical History: No Pertinent History Cardiac: No Pertinent History Respiratory: No Pertinent History Gastrointestinal: No Pertinent History Genitourinary: No Pertinent History Musculoskeletal: No Pertinent History Male Surgical History: No Pertinent History Other Surgical History: prostate, attempted lung biopsy lung washings, - Social History Smoking Status: Current every day smoker How long have you smoked: 50 years Exposure to second hand smoke: No Drug Use: none Patient Lives Alone: No - Social Determinants of Health Will the patient participate in the screening: Yes Do you worry about a steady place to live?: No Do you have any problems with any of the following?: No known problems In the past 12 months,have you had to go without utilities?: No Transportation Issues: No Has anyone in your support network made you feel unsafe?: No Have you or anyone in your house had to go without enough: No - Nursing Vital Signs Nursing Vital Signs: Initial Vital Signs Pulse Rate 59 L 10/13/23 11:21 Respiratory Rate 22 10/13/23 11:21 O2 Sat by Pulse Oximetry 91 L 10/13/23 11:21 Pain Scale Pain Intensity 0 - Physical Exam General Appearance: no apparent distress, alert Eye Exam: PERRL/EOMI Ears, Nose, Throat Exam: pharynx normal Neck Exam: normal inspection, full range of motion Respiratory Exam: wheezing, No respiratory distress, No accessory muscle use Cardiovascular Exam: regular rate/rhythm, normal heart sounds Gastrointestinal/Abdomen Exam: soft, normal bowel sounds Back Exam: normal inspection Extremity Exam: normal range of motion, tenderness (Mild swelling and tenderness left forearm/antecubital area. Distal neurovascular intact) Neurologic Exam: alert, oriented x 3, cooperative, gang pusher II-XII nml as tested Skin Exam: normal color SpO2 Interpretation: normal SpO2: 99 O2 Delivery: Room Air Ordered Tests: Active Orders 24 hr Category Date Time Status CBC Stat Lab 10/13/23 11:43 Completed CMP Stat Lab 10/13/23 11:55 Completed PT INR [PROTIME WITH INR] Stat Lab 10/13/23 11:55 Completed PTT Stat Lab 10/13/23 11:55 Completed Medication Summary Discontinued Medications Generic Name Dose Route Start Last Admin Trade Name Freq PRN Reason Stop Dose Admin Warfarin Sodium 5 mg 10/13/23 13:01 Warfarin Sodium 5 Mg Tablet PO 10/13/23 13:02 ONCE ONE Lab/Rad Data: Laboratory Result Diagrams 10/13/23 11:43 10/13/23 11:55 Laboratory Results 10/13/23 10/13/23 10/13/23 Range/Units 11:55 11:55 11:43 WBC 11.2 H (4.23-9.07) x10^3/uL RBC 4.39 L (4.63-6.08) x10^6/uL Hgb 11.4 L (13.7-17.5) g/dL Hct 35.8 L (40.1-51.0) % MCV 81.5 (79.0-92.2) fL MCH 26.0 (25.7-32.2) pg MCHC 31.8 L (32.3-36.5) g/dL RDW 17.4 H (11.6-14.4) % Plt Count 421 H (163-337) x10^3/uL MPV 8.7 L (9.4-12.4) fL PT 11.6 (9.4-12.5) SECONDS INR 1.07 (0.8-3.0) APTT 28.6 (25.1-36.5) SECONDS Sodium 138 (135-145) mmol/L Potassium 4.4 (3.5-5.1) mmol/L Chloride 102 (98-107) mmol/L Carbon Dioxide 32 H (22-30) mmol/L Anion Gap 9.1 (5-15) MEQ/L BUN 15 (9-20) mg/dL Creatinine 0.71 (0.66-1.25) mg/dL Estimated GFR 100.6 ML/MIN Glucose 111 H (74-106) mg/dL Calcium 9.2 (8.4-10.2) mg/dL Total Bilirubin 0.20 (0.2-1.3) mg/dL AST 27 (17-59) U/L ALT 31 (0-50) U/L Alkaline Phosphatase 51 (38-126) U/L Serum Total Protein 7.0 (6.3-8.2) g/dL Albumin 3.5 (3.5-5.0) g/dL - Progress Progress Note: 10/13/23 13:25 68-year-old male with history of chronic lung issues, 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 Patient was seen in this ER yesterday for swelling and pain left elbow/forearm area. He was given Lovenox shot and ultrasound was ordered for today which is positive for occluding thrombi and basilic vein and nonoccluding thrombi in the cephalic vein and also superficial thrombi on the posterior hand vein. Patient has no difficulty breathing but what he has at his baseline. Oxygen saturation on 3 L is 98%. Lungs fairly clear to auscultation. Has white count 11, Hb 11, chemistries fairly unremarkable and platelets of 421. INR 1.08. I have discussed with Dr. Harper patient's PCP/recruiting consultant who saw patient yesterday and discharged from [facility], reviewed ultrasound findings, recommended restarting on Coumadin and outpatient follow-up. Dr. Hanley's office will call patient to schedule outpatient appointments for Coumadin recheck. I have given a dose of Lovenox in here. Since this is a superficial vein thrombosis, Dr. Drew does not think patient needs to be bridged. I would continue with Coumadin, have my Coumadin clinic pharmacist come down and talk to patient and he is okay with if patient wished to follow-up with Coumadin clinic here versus going to [facility]. Patient will decide this later. Discussed signs symptoms of worsening needing return to ER which she seems understanding. Discussed with Dr.: Other (Dr. Harper pulmonology) Counseled pt/family regarding: lab results, diagnosis, need for follow-up Medical Desision Making - Independent Historian Additional History obtained from: Spouse - Discussion of managment Care discussed with:: specialist (Dr. Harper) Reviewed:: Test results Agreed on:: Treatment plan, need for follow-up Will see patient: In office - Diagnostic Testing Diagnostic test were ordered, analyzed, and reviewed by me: Yes - Risk of complications The pt has a mod risk of morbidity or mortality based on: Need for prescription drug management - Departure Departure Disposition: Home Clinical Impression: Thrombosis of upper extremity Condition: Stable Critical Care Time: No Referrals: HENRRY LERNER ROULETTE DEALER [Primary Care Provider] - Follow up with PCP 1 day Instructions: Deep Vein Thrombosis (Blood Clots in the Arm) (DC), Superficial vein phlebitis and thrombosis Additional Instructions: Follow-up with Dr. Harper/Coumadin clinic for reevaluation and recheck of Coumadin level in 1 to 2 days. Continue with Coumadin 5 mg until adjusted by your Coumadin clinic. Return to ER for increasing swelling pain or if having headache, dizziness lightheadedness etc. Prescriptions: Warfarin Sodium 5 mg [Coumadin] 5 mg PO DAILY 30 Days #30 tablet
[2023-10-13] MEDS ORDERED: ENOXAPARIN SODIUM SQ ONE (13:58)
[2023-10-13] MEDS: COUMADIN PO ONE (14:04)
[2023-10-13] MEDS: ENOXAPARIN SODIUM SQ STA (14:04)
[2023-10-13 14:11] VITALS: BP 124/79; PULSE 70; RESP 18; O2SAT 97
== END 2023-10-13 14:12 | disposition home or self-care (01) ==
LOC: ED 10:26
DX: I82.612 Acute embolism and thrombosis of superficial veins of left upper extremity (principal); Z79.52 Long term (current) use of systemic steroids; Z79.01 Long term (current) use of anticoagulants; Z79.899 Other long term (current) drug therapy; Z72.0 Tobacco use
CPT/HCPCS: 36415; 80053; 85027; 85610; 85730; 96372; 99283; J1650; A9270-GY

== ENCOUNTER 2023-12-02 22:57 | Emergency (ER) | payer MEDICARE ==
--- NOTE | 2023-12-02 23:04 | ERPHSYRPT ---
- History of Present Illness Time Seen by Provider: 12/02/23 23:04 Source: patient, family Exam Limitations: no limitations Physician History: This is a thin 68-year-old white male patient who was brought in to the emergency department by private vehicle escorted by his spouse. Patient has a history of oxygen dependent COPD and is chronically on 2 L of oxygen via nasal cannula. His 2 L nasal cannula oxygen level is 99%. Patient is chronically on 10 mg of nose daily. He is also taking warfarin. Patient continues to smoke tobacco cigarettes daily. Patient has a history of gastroesophageal reflux disease. He denies chest pain. He does have a history of cough and COPD. He did take home COVID test which were negative per his report. Although his oxygen saturation level on 2 L of oxygen via nasal cannula at 90%, patient feels as though he is short of breath. Timing/Duration: worse (3) Cough Quality/Degree: mild, productive cough (Yellow-greenish sputum) Possible Cause: occasional episodes Modifying Factors: Improves With: coughing, deep breath, oxygen Associated Symptoms: cough, shortness of breath, wheezing, No fever, No chills, No chest pain/soreness, No headache, No muscle aches Allergies/Adverse Reactions: apixaban [From Eliquis] Allergy (Verified 12/02/23 23:07) bupropion [From Wellbutrin] Adverse Reaction (Severe, Verified 12/02/23 23:07) Iodinated Contrast Media Adverse Reaction (Mild, Verified 12/02/23 23:07) Hives Home Medications: Fluticasone/Umeclidin/Vilanter [Trelegy Ellipta 200-62.5-25] 1 each IH DAILY 08/14/23 [History] Montelukast Sodium 10 mg [Singulair 10 MG] 10 mg PO DAILY 08/14/23 [History] PANTOPRAZOLE 40 mg Tablet [Protonix 40MG Tablet] 40 mg PO QAM 08/14/23 [History] Tamsulosin HCl 0.4 mg [Flomax 0.4 MG] 0.4 mg PO DAILY 08/14/23 [History] Itraconazole 2 cap PO BID 10/12/23 [History] Prednisone 10 mg [Deltasone 10 mg] 10 mg PO DAILY 10/13/23 [History] Albuterol Common Canister [Ventolin Common Canister] 2 puff IH Q6HPRN PRN 10/20/23 [History] Nitroglycerin 0.4 mg Tablet [Nitrostat 0.4 MG Tablet] 0.4 mg SL Q5MIN PRN MR X 3 PRN 10/20/23 [History] hydrOXYzine HCL [Hydroxyzine HCl] 25 mg PO TIDPRN PRN 10/20/23 [History] Albuterol 2.5 mg/0.5 ml [PROVENTIL Solution 2.5 MG/0.5 ML] 1 neb IH QID PRN PRN 12/02/23 [History] Furosemide 20 mg [Lasix 20 mg] 1 tab PO DAILY PRN PRN 12/02/23 [History] Warfarin Sodium 4 mg PO UD 12/02/23 [History] Warfarin Sodium 2 mg [Coumadin 2 MG] 1 tab PO UD 12/02/23 [History] Hx Tetanus, Diphtheria Vaccination/Date Given: Yes Hx Influenza Vaccination/Date Given: Yes Hx Pneumococcal Vaccination/Date Given: No Travel Risk - International Travel Have you traveled outside of the country in past 3 weeks: No - Emerging Infectious Disease Are you exhibiting symptoms associated with any current EIDs: Yes Symptoms: Shortness of Breath - Review of Systems Constitutional: No Symptoms Eyes: No Symptoms Ears, Nose, & Throat: No Symptoms Respiratory: Cough, Dyspnea, Wheezing Cardiac: No Symptoms Abdominal/Gastrointestinal: No Symptoms Genitourinary Symptoms: No Symptoms Musculoskeletal: No Symptoms Skin: No Symptoms Neurological: No Symptoms Psychological: No Symptoms Endocrine: No Symptoms Hematologic/Lymphatic: No Symptoms Immunological/Allergic: No Symptoms All Other Systems: Reviewed and Negative - Past Medical History Pertinent Past Medical History: No Neurological History: No Pertinent History ENT History: No Pertinent History Cardiac History: Aneurysm Respiratory History: COPD, Emphysema Endocrine Medical History: No Pertinent History Musculoskeletal History: No Pertinent History GI Medical History: GERD Psycho-Social History: No Pertinent History Male Reproductive Disorders: Prostate Problems Other Medical History: aortic anuerysm, PET scan shows nodules in lung, DVT in left arm - Past Surgical History Past Surgical History: Yes Neuro Surgical History: No Pertinent History Cardiac: No Pertinent History Respiratory: No Pertinent History Gastrointestinal: No Pertinent History Genitourinary: No Pertinent History Musculoskeletal: No Pertinent History Male Surgical History: No Pertinent History Other Surgical History: prostate, attempted lung biopsy lung washings, - Social History Smoking Status: Current every day smoker How long have you smoked: 50 years Exposure to second hand smoke: No Drug Use: none Patient Lives Alone: No - Social Determinants of Health Will the patient participate in the screening: Yes Do you worry about a steady place to live?: No In the past 12 months,have you had to go without utilities?: No Transportation Issues: No Has anyone in your support network made you feel unsafe?: No Have you or anyone in your house had to go without enough: No - Nursing Vital Signs Nursing Vital Signs: Initial Vital Signs Temperature 97.9 F 12/02/23 23:05 Pulse Rate 62 12/02/23 23:05 Respiratory Rate 24 12/02/23 23:05 Blood Pressure 155/79 12/02/23 23:05 O2 Sat by Pulse Oximetry 99 12/02/23 23:05 Pain Scale Pain Intensity 0 - Physical Exam General Appearance: mild distress, alert, anxiety, thin Eye Exam: PERRL/EOMI, eyes nml inspection Ears, Nose, Throat Exam: normal ENT inspection, moist mucous membranes Neck Exam: normal inspection, non-tender, supple, full range of motion Respiratory Exam: lungs clear, airway intact, wheezing (Expiratory wheezing bilaterally), No chest tenderness, No respiratory distress Cardiovascular Exam: regular rate/rhythm, normal heart sounds, normal peripheral pulses Gastrointestinal/Abdomen Exam: soft, normal bowel sounds, No tenderness Rectal Exam: not done Back Exam: normal inspection, normal range of motion, No CVA tenderness, No vertebral tenderness Extremity Exam: normal inspection, normal range of motion, pelvis stable Neurologic Exam: alert, oriented x 3, cooperative, nml cerebellar function, nml station & gait, sensation nml Skin Exam: normal color, warm, dry Lymphatic Exam: No adenopathy SpO2 Interpretation: normal O2 Delivery: Room Air - Course Nursing assessment & vital signs reviewed: Yes Ordered Tests: Active Orders 24 hr Category Date Time Status Oxygen-ED Only Nasal Cannula 2 lpm Care 12/02/23 23:23 Active CHEST 1 VIEW (PORTABLE) Stat Exams 12/02/23 23:24 Taken CBC W DIFF Stat Lab 12/02/23 23:20 Completed CMP Stat Lab 12/02/23 23:20 Completed CULTURE,SPUTUM Stat Lab 12/03/23 00:40 Ordered D-DIMER QUANTITATIVE Stat Lab 12/02/23 23:20 Completed Lactic Acid Stat Lab 12/02/23 23:35 Completed MAGNESIUM Stat Lab 12/02/23 23:20 Completed NT PRO BNPII Stat Lab 12/02/23 23:20 Completed PROTIME WITH INR Stat Lab 12/02/23 23:20 Completed Respiratory Therapy Assessment DAILY RT 12/02/23 23:33 Active Medication Summary Discontinued Medications Generic Name Dose Route Start Last Admin Trade Name Almita PRN Reason Stop Dose Admin Albuterol/Ipratropium Confirm 12/02/23 23:31 Ipratropium/Albuterol Sulfate 3 Ml Ampul.Neb Administered 12/02/23 23:32 Dose 3 ml IH .STK-MED ONE Albuterol/Ipratropium 3 ml 12/02/23 23:32 12/02/23 23:33 Ipratropium/Albuterol Sulfate 3 Ml Ampul.Neb IH 12/02/23 23:33 3 ml STAT ONE Administration Methylprednisolone Sodium 0 mg 12/03/23 01:18 Succinate 125 mg/ Sterile IV 12/03/23 01:19 Water 2 ml STAT ONE Ceftriaxone Sodium 1 gm in 100 mls @ 200 mls/hr 12/03/23 01:17 Rocephin 1 Gm / 100 Ml Nacl IV 12/03/23 01:46 STAT ONE Lab/Rad Data: Laboratory Result Diagrams 12/02/23 23:20 12/02/23 23:20 Laboratory Results 12/02/23 12/02/23 12/02/23 Range/Units 23:35 23:20 23:20 WBC (4.23-9.07) x10^3/uL RBC (4.63-6.08) x10^6/uL Hgb (13.7-17.5) g/dL Hct (40.1-51.0) % MCV (79.0-92.2) fL MCH (25.7-32.2) pg MCHC (32.3-36.5) g/dL RDW (11.6-14.4) % Plt Count (163-337) x10^3/uL MPV (9.4-12.4) fL Gran % (34.0-67.9) % Immature Gran % (Auto) (0.001-0.429) % Nucleat RBC Rel Count (0.00-0.2) % Eos # (Auto) (0.04-0.54) x10^3/uL Immature Gran # (Auto) (0.001-0.031) x10^3u/L Absolute Lymphs (auto) (1.32-3.57) x10^3/uL Absolute Monos (auto) (0.30-0.82) x10^3/uL Absolute Nucleated RBC (0.00-0.012) x10^3u/L Lymphocytes % (21.8-53.1) % Monocytes % (5.3-12.2) % Eosinophils % (0.8-7.0) % Basophils % (0.2-1.2) % Absolute Granulocytes (1.78-5.38) x10^3/uL Basophils # (0.01-0.08) x10^3/uL PT 29.6 H (9.4-12.5) SECONDS INR 2.91 (0.8-3.0) D-Dimer (0.0-0.50) mg/L Sodium (135-145) mmol/L Potassium (3.5-5.1) mmol/L Chloride (98-107) mmol/L Carbon Dioxide (22-30) mmol/L Anion Gap (5-15) MEQ/L BUN (9-20) mg/dL Creatinine (0.66-1.25) mg/dL Estimated GFR ML/MIN Glucose (74-106) mg/dL Lactic Acid 1.5 (0.4-2.0) Calcium (8.4-10.2) mg/dL Magnesium (1.6-2.3) mg/dL Total Bilirubin (0.2-1.3) mg/dL AST (17-59) U/L ALT (0-50) U/L Alkaline Phosphatase (38-126) U/L NT-Pro-B Natriuret Pep 274 (<300) pg/mL Serum Total Protein (6.3-8.2) g/dL Albumin (3.5-5.0) g/dL Influenza Type A Ag (NEGATIVE) Influenza Type B Ag (NEGATIVE) RSV (PCR) (NEGATIVE) SARS-CoV-2 (PCR) (NEGATIVE) Group A Strep Antibody (NEGATIVE) 12/02/23 12/02/23 12/02/23 Range/Units 23:20 23:20 23:20 WBC 9.0 (4.23-9.07) x10^3/uL RBC 4.66 (4.63-6.08) x10^6/uL Hgb 12.5 L (13.7-17.5) g/dL Hct 38.9 L (40.1-51.0) % MCV 83.5 (79.0-92.2) fL MCH 26.8 (25.7-32.2) pg MCHC 32.1 L (32.3-36.5) g/dL RDW 20.9 H (11.6-14.4) % Plt Count 270 (163-337) x10^3/uL MPV 9.6 (9.4-12.4) fL Gran % 75.8 H (34.0-67.9) % Immature Gran % (Auto) 0.6 H (0.001-0.429) % Nucleat RBC Rel Count 0.0 (0.00-0.2) % Eos # (Auto) 0.08 (0.04-0.54) x10^3/uL Immature Gran # (Auto) 0.05 H (0.001-0.031) x10^3u/L Absolute Lymphs (auto) 1.11 L (1.32-3.57) x10^3/uL Absolute Monos (auto) 0.90 H (0.30-0.82) x10^3/uL Absolute Nucleated RBC 0.00 (0.00-0.012) x10^3u/L Lymphocytes % 12.3 L (21.8-53.1) % Monocytes % 10.0 (5.3-12.2) % Eosinophils % 0.9 (0.8-7.0) % Basophils % 0.4 (0.2-1.2) % Absolute Granulocytes 6.81 H (1.78-5.38) x10^3/uL Basophils # 0.04 (0.01-0.08) x10^3/uL PT (9.4-12.5) SECONDS INR (0.8-3.0) D-Dimer < 0.19 (0.0-0.50) mg/L Sodium 137 (135-145) mmol/L Potassium 3.7 (3.5-5.1) mmol/L Chloride 103 (98-107) mmol/L Carbon Dioxide 28 (22-30) mmol/L Anion Gap 9.2 (5-15) MEQ/L BUN 12 (9-20) mg/dL Creatinine 0.75 (0.66-1.25) mg/dL Estimated GFR 98.9 ML/MIN Glucose 112 H (74-106) mg/dL Lactic Acid (0.4-2.0) Calcium 8.9 (8.4-10.2) mg/dL Magnesium 2.2 (1.6-2.3) mg/dL Total Bilirubin 0.40 (0.2-1.3) mg/dL AST 31 (17-59) U/L ALT 20 (0-50) U/L Alkaline Phosphatase 47 (38-126) U/L NT-Pro-B Natriuret Pep (<300) pg/mL Serum Total Protein 6.8 (6.3-8.2) g/dL Albumin 3.9 (3.5-5.0) g/dL Influenza Type A Ag (NEGATIVE) Influenza Type B Ag (NEGATIVE) RSV (PCR) (NEGATIVE) SARS-CoV-2 (PCR) (NEGATIVE) Group A Strep Antibody (NEGATIVE) 12/02/23 12/02/23 Range/Units 23:20 23:20 WBC (4.23-9.07) x10^3/uL RBC (4.63-6.08) x10^6/uL Hgb (13.7-17.5) g/dL Hct (40.1-51.0) % MCV (79.0-92.2) fL MCH (25.7-32.2) pg MCHC (32.3-36.5) g/dL RDW (11.6-14.4) % Plt Count (163-337) x10^3/uL MPV (9.4-12.4) fL Gran % (34.0-67.9) % Immature Gran % (Auto) (0.001-0.429) % Nucleat RBC Rel Count (0.00-0.2) % Eos # (Auto) (0.04-0.54) x10^3/uL Immature Gran # (Auto) (0.001-0.031) x10^3u/L Absolute Lymphs (auto) (1.32-3.57) x10^3/uL Absolute Monos (auto) (0.30-0.82) x10^3/uL Absolute Nucleated RBC (0.00-0.012) x10^3u/L Lymphocytes % (21.8-53.1) % Monocytes % (5.3-12.2) % Eosinophils % (0.8-7.0) % Basophils % (0.2-1.2) % Absolute Granulocytes (1.78-5.38) x10^3/uL Basophils # (0.01-0.08) x10^3/uL PT (9.4-12.5) SECONDS INR (0.8-3.0) D-Dimer (0.0-0.50) mg/L Sodium (135-145) mmol/L Potassium (3.5-5.1) mmol/L Chloride (98-107) mmol/L Carbon Dioxide (22-30) mmol/L Anion Gap (5-15) MEQ/L BUN (9-20) mg/dL Creatinine (0.66-1.25) mg/dL Estimated GFR ML/MIN Glucose (74-106) mg/dL Lactic Acid (0.4-2.0) Calcium (8.4-10.2) mg/dL Magnesium (1.6-2.3) mg/dL Total Bilirubin (0.2-1.3) mg/dL AST (17-59) U/L ALT (0-50) U/L Alkaline Phosphatase (38-126) U/L NT-Pro-B Natriuret Pep (<300) pg/mL Serum Total Protein (6.3-8.2) g/dL Albumin (3.5-5.0) g/dL Influenza Type A Ag NEGATIVE (NEGATIVE) Influenza Type B Ag NEGATIVE (NEGATIVE) RSV (PCR) NEGATIVE (NEGATIVE) SARS-CoV-2 (PCR) NEGATIVE (NEGATIVE) Group A Strep Antibody NOT DETECTED (NEGATIVE) - Progress Progress: improved, re-examined Air Movement: good Progress Note: 09/06/24 23:55 My medical decision making and the assignment of moderate complexity to this pat ient's workup today is based on review of the patient's past medical history, review patient's medication list, reviewed patient drug allergy list, history present illness and physical findings on examination. Workup in this patient clued placement of intravenous line, infusion of Solu-Medrol steroids, respiratory therapy evaluation and treatment with nebulizer DuoNeb, CBC, CMP, PT INR, chest x-ray, magnesium, viral swabs. Differential diagnosis includes but is not limited to pneumonia, COPD e xacerbation, CHF exacerbation, myocardial infarction, anemia, electrolyte abnormalities, arrhythmias 12/03/23 01:24 The patient and family would not allow nurses to place an intravenous line because of history of blood clots in the upper extremities in the past I interpreted the patient's laboratory data results. Based on the laboratory data results, the patient does not have an acute or emergent medical issue. The chest x-ray preliminary results were interpreted by me. I do not see or appreciate an acute cardiopulmonary process. I do not see an infiltrate present. Patient has left upper lobe and right lower lobe scarring. 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 Blood Culture(s) Obtained: Yes Antibiotics given: Yes Counseled pt/family regarding: lab results, diagnosis, need for follow-up, rad results Medical Desision Making - Independent Historian Additional History obtained from: Spouse - Diagnostic Testing Diagnostic test were ordered, analyzed, and reviewed by me: Yes Radiological Interpretation: Interpreted by me - Risk of complications The pt has a mod risk of morbidity or mortality based on: Need for prescription drug management - Departure Departure Disposition: Home Clinical Impression: COPD exacerbation Condition: Stable Critical Care Time: No Referrals: [facility] [Primary Care Provider] - Follow up/PCP as directed Instructions: Chronic Obstructive Pulmonary Disease Additional Instructions: Avoid exposure to any type of smoke. Continue medications as prescribed. Take your antibiotics as prescribed. Increase your prednisone to 3 times a day for the next 4 days. Use your nebulizer treatments every 4 hours while awake for the next 48 hours. Call your primary care provider and warehouse worker 2nd shift on 12/05/2023, to obtain further instructions and to make a follow-up appointment to be seen in the next 3 to 5 days. Prescriptions: Cefdinir 300 mg PO BID #14 cap Prednisone 10 mg [Deltasone 10 mg] 10 mg PO TID #12 tablet
[2023-12-02 23:07] VITALS: TEMP 97.9
[2023-12-02 23:31] LABS: Absolute Neutrophil Ct (ANC) 6.81 x10^3/uL (1.78-5.38); BASOPHIL % 0.4 % (0.2-1.2); Basophil (Absolute #) 0.04 x10^3/uL (0.01-0.08); Eosinophil % 0.9 % (0.8-7.0); Eosinophil (Absolute #) 0.08 x10^3/uL (0.04-0.54); Hematocrit 38.9 % (40.1-51.0); Hemoglobin 12.5 g/dL (13.7-17.5); IMMATURE GRAN # 0.05 x10^3u/L (0.001-0.031); IMMATURE GRAN % 0.6 % (0.001-0.429); Lymphocyte (Absolute #) 1.11 x10^3/uL (1.32-3.57); Lymphocytes % 12.3 % (21.8-53.1); Mean Cell Volume 83.5 fL (79.0-92.2); Mean Corpuscular Hemoglobin 26.8 pg (25.7-32.2); Mean Corpuscular Hgb Concent. 32.1 g/dL (32.3-36.5); Mean Platelet Volume 9.6 fL (9.4-12.4); Neutrophil % 75.8 % (34.0-67.9); Platelet Count 270 x10^3/uL (163-337); Red Blood Count 4.66 x10^6/uL (4.63-6.08); Red Cell Distribution Width 20.9 % (11.6-14.4)
[2023-12-02] MEDS ORDERED: DUONEB 0.5-3 MG/3 ml Neb IH ONE (23:31)
[2023-12-02] MEDS: DUONEB 0.5-3 MG/3 ml Neb IH ONE (23:33)
[2023-12-02 23:49] LABS: ALBUMIN 3.9 g/dL (3.5-5.0); ANION GAP 9.2 MEQ/L (5-15); BILIRUBIN,TOTAL 0.4 mg/dL (0.2-1.3); Calcium 8.9 mg/dL (8.4-10.2); Creatinine 1 0.75 mg/dL (0.66-1.25); EST GLOMERULAR FILTRATION RATE 98.9 ML/MIN; MAGNESIUM 2.2 mg/dL (1.6-2.3); Potassium 3.7 mmol/L (3.5-5.1); Total Protein 6.8 g/dL (6.3-8.2)
[2023-12-02 23:51] LABS: INR 2.91 (0.8-3.0); PROTIME 29.6 SECONDS (9.4-12.5)
[2023-12-03 00:20] LABS: INFLUENZA A NEGATIVE (NEGATIVE); INFLUENZA B NEGATIVE (NEGATIVE); RESPIRATORY SYNCTIAL VIRUS NEGATIVE (NEGATIVE); SARS-CoV-2 Xpert Express NEGATIVE (NEGATIVE)
[2023-12-03 01:05] VITALS: BP 117/70; PULSE 54; RESP 20; O2SAT 99
[2023-12-03] MEDS: solu-MEDROL 125 MG, Sterile H2O 10 ml 2 ML IV ONE (01:26)
[2023-12-03] MEDS: ROCEPHIN 1 GM / 100 ML NaCl 1 GM/100 ML IVPB IV ONE (01:27)
[2023-12-03] MEDS ORDERED: solu-MEDROL ONE (01:29)
[2023-12-03] MEDS ORDERED: XYLOCAINE 1% HCL 20 ML MDV ONE (01:29)
[2023-12-03] MEDS ORDERED: Rocephin 1000 MG INJ ONE (01:29)
[2023-12-03] MEDS: Rocephin 1000 MG INJ IM ONE (01:38)
[2023-12-03] MEDS: solu-MEDROL 125 MG, Sterile H2O 10 ml 2 ML IM ONE (01:39)
--- NOTE | 2023-12-03 07:04 | XRAY ---
Indication: Cough, short of breath, and congestion. Comparison: None Portable chest demonstrates moderate left upper lung pleural parenchymal scarring/thickening with left lung volume loss. Remaining heart and lungs unremarkable. Bony thorax intact.
== END 2023-12-03 01:56 | disposition home or self-care (01) ==
LOC: ED 22:57
DX: J44.1 Chronic obstructive pulmonary disease with (acute) exacerbation (principal); Z79.52 Long term (current) use of systemic steroids; Z79.01 Long term (current) use of anticoagulants; Z79.899 Other long term (current) drug therapy; Z99.81 Dependence on supplemental oxygen; Z72.0 Tobacco use; Z86.718 Personal history of other venous thrombosis and embolism
CPT/HCPCS: 0241U; 36415; 71045; 80053; 83605; 83735; 83880; 85025; 85379; 85610; 87070; 87077; 87186; 87651; 94640; 96372; 99284; J0696; J2919; A9270-GY

== ENCOUNTER 2024-01-06 22:58 | Emergency (ER) | payer MEDICARE ==
[2024-01-06 23:07] VITALS: TEMP 97.7
--- NOTE | 2024-01-06 23:50 | ERPHSYRPT ---
- History of Present Illness Time Seen by Provider: 01/06/24 23:35 Source: patient, family Exam Limitations: no limitations Patient Subjective Stated Complaint: fell on rock while out fishing Triage Nursing Assessment: Pt ambulated into ER without diff, spouse at bedside. Pt c/o fall that occured while fishing tonight with his son in law. Pt states, "I was walking down a hill to my chair and fell, hitting alot of rocks". Pt has hematoma to left side of forehead with abrasion and hematoma to episcopal area to left side with abrasion. Pt has some slight bruising with small scratch to left ear. Pt has ecchymotic bruising noted to left lower arm and elbow. Pt has skin tear to upper portion of left lower arm, measuring 2.8 cm L x 2.0 cm W, with small amoung of blood noted. Pt has skin tear to mid left lower arm measuring 4.5 cm L x 1.8 cm W, with small amount of blood noted. Pt has skin tear/scratch to left medial wrist area measuring 2.0 cm L, no active bleeding noted, well approximated. Pt has small skin tear to left medial hand, measuring approx 0.9 cm L x 0.4 cm W, no active bleeding noted at this time. Pt did not have any loc. Physician History: This is a thin 68-year-old white male patient who is out night fishing and was walking downhill towards his chair when the fell hitting his head on rocks. He also suffered skin tears x 3 to the left upper extremity. Patient states his tetanus status is up-to-date. He did not lose consciousness. Patient is on Xarelto. He has a history of gastroesophageal reflux disease, prostate issues and COPD. Occurred: just prior to arrival Reason for Fall: slipped (Going downhill), fell from standing pos Injuries/Pain Location: head, upper extremity (Left forearm and wrist skin tears) Loss of Consciousness: no loss of consciousness Quality: sharpness Severity of Pain-Max: mild Severity of Pain-Current: mild Modifying Factors: Improves With: movement Associated Symptoms (Fall): denies symptoms Allergies/Adverse Reactions: apixaban [From Eliquis] Allergy (Verified 01/06/24 23:25) bupropion [From Wellbutrin] Adverse Reaction (Severe, Verified 01/06/24 23:25) Iodinated Contrast Media Adverse Reaction (Mild, Verified 01/06/24 23:25) Hives Home Medications: Montelukast Sodium 10 mg [Singulair 10 MG] 10 mg PO DAILY 08/14/23 [History] PANTOPRAZOLE 40 mg Tablet [Protonix 40MG Tablet] 40 mg PO QAM 08/14/23 [History] Tamsulosin HCl 0.4 mg [Flomax 0.4 MG] 0.4 mg PO DAILY 08/14/23 [History] Itraconazole 2 cap PO BID 10/12/23 [History] Albuterol Common Canister [Ventolin Common Canister] 2 puff IH Q6HPRN PRN 10/20/23 [History] Nitroglycerin 0.4 mg Tablet [Nitrostat 0.4 MG Tablet] 0.4 mg SL Q5MIN PRN MR X 3 PRN 10/20/23 [History] hydrOXYzine HCL [Hydroxyzine HCl] 25 mg PO TIDPRN PRN 10/20/23 [History] Albuterol 2.5 mg/0.5 ml [PROVENTIL Solution 2.5 MG/0.5 ML] 1 neb IH QID PRN PRN 12/02/23 [History] Furosemide 20 mg [Lasix 20 mg] 1 tab PO DAILY PRN PRN 12/02/23 [History] Rivaroxaban [Xarelto] 20 mg PO EVENING MEAL 01/06/24 [History] Tiotropium Br/Olodaterol HCl [Stiolto Respimat Inhaler (60)] 2 puff IH DAILY 01/06/24 [History] Hx Tetanus, Diphtheria Vaccination/Date Given: Yes Hx Influenza Vaccination/Date Given: Yes Hx Pneumococcal Vaccination/Date Given: No Travel Risk - International Travel Have you traveled outside of the country in past 3 weeks: No - Emerging Infectious Disease Are you exhibiting symptoms associated with any current EIDs: No Symptoms: Shortness of Breath - Review of Systems Constitutional: No Symptoms Eyes: No Symptoms Ears, Nose, & Throat: No Symptoms Respiratory: No Symptoms Cardiac: No Symptoms Abdominal/Gastrointestinal: No Symptoms Genitourinary Symptoms: No Symptoms Musculoskeletal: Injury (Left forearm to wrist skin tears) Skin: Other (Skin tears x 3 left forearm to left wrist) Neurological: No Symptoms Psychological: No Symptoms Endocrine: No Symptoms Hematologic/Lymphatic: No Symptoms Immunological/Allergic: No Symptoms All Other Systems: Reviewed and Negative - Past Medical History Pertinent Past Medical History: Yes Neurological History: No Pertinent History ENT History: No Pertinent History Cardiac History: Aneurysm, High Cholesterol Respiratory History: COPD, Emphysema, Pneumonia, Sleep Apnea Endocrine Medical History: No Pertinent History Musculoskeletal History: No Pertinent History GI Medical History: GERD Psycho-Social History: No Pertinent History Male Reproductive Disorders: Prostate Problems Other Medical History: aortic anuerysm, PET scan shows nodules in lung, DVT in left arm, histoplasmosis, 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 - Past Surgical History Past Surgical History: Yes Neuro Surgical History: No Pertinent History Cardiac: Cardiac Catheterization Respiratory: No Pertinent History Gastrointestinal: No Pertinent History Genitourinary: No Pertinent History Musculoskeletal: No Pertinent History Male Surgical History: No Pertinent History Other Surgical History: prostate, attempted lung biopsy washings, - Social History Smoking Status: Former smoker How long have you smoked: 50 years Exposure to second hand smoke: Yes Drug Use: none Patient Lives Alone: No - Social Determinants of Health Will the patient participate in the screening: Yes Do you worry about a steady place to live?: No Do you have any problems with any of the following?: No known problems In the past 12 months,have you had to go without utilities?: No Transportation Issues: No Has anyone in your support network made you feel unsafe?: No Have you or anyone in your house had to go without enough: No - Nursing Vital Signs Nursing Vital Signs: Initial Vital Signs Temperature 97.7 F 01/06/24 23:04 Pulse Rate 52 L 01/06/24 23:04 Respiratory Rate 18 01/06/24 23:04 Blood Pressure 116/70 01/06/24 23:04 O2 Sat by Pulse Oximetry 98 01/06/24 23:04 Pain Scale Pain Intensity 0 - Shubert Coma Score Best Eye Response (Shubert): (4) open spontaneously Best Verbal Response (Shubert): (5) oriented Best Motor Response (Ann): (6) obeys commands Ann Total: 15 - Physical Exam General Appearance: no apparent distress, alert, anxiety, thin Head Injury: contusions (Left forehead), swelling (Left forehead), tenderness (Left forehead) Eye Exam: PERRL/EOMI, eyes nml inspection ENT Exam: airway nml, nml ext.inspection Neck Exam: supple, trachea midline, full range of motion, normal alignment Respiratory/Chest Exam: normal breath sounds, No chest tenderness, No respiratory distress, No ecchymosis, No crepitus Cardiovascular Exam: normal heart sounds, regular rate/rhythm Gastrointestinal Exam: soft, normal bowel sounds, No tenderness Rectal Exam: not done Back Exam: normal inspection, normal range of motion, No CVA tenderness, No vertebral tenderness Extremity Exam: normal range of motion, other (Skin tears x 3 left proximal forearm and distal forearm/wrist. See nurses note for dimensions) Neurologic Exam: alert, oriented x 3, cooperative, metal patternmaker II-XII nml as tested, nml cerebellar function, nml station & gait, sensation nml Skin Exam: other (Left forearm/distal wrist skin tears x 3) SpO2 Interpretation: normal SpO2: 98 O2 Delivery: Room Air - Course Nursing assessment & vital signs reviewed: Yes Ordered Tests: Active Orders 24 hr Category Date Time Status CERVICAL SPINE WO CONTRAST [CT] Stat Exams 01/06/24 23:50 Completed HEAD WITHOUT CONTRAST [CT] Stat Exams 01/06/24 23:50 Completed Medication Summary Discontinued Medications Generic Name Dose Route Start Last Admin Trade Name Almita PRN Reason Stop Dose Admin Bacitracin Zinc 0.9 each 01/07/24 00:49 01/07/24 01:07 Bacitracin Packet 1 Each Pckt TP 01/07/24 00:50 0.9 each STAT ONE Administration Bacitracin Zinc Confirm 01/07/24 00:50 Bacitracin Packet 1 Each Pckt Administered 01/07/24 00:51 Dose 1 each .ROUTE .STK-MED ONE - Progress Progress: improved, pain not gone completely Progress Note: 01/07/24 00:23 My medical decision making and the assignment of moderate complexity to this patient's medical issue today is based on review of the patient's past medical history, review the patient's medication list, reviewed patient drug allergy, history present illness and physical findings on examination. The workup in this patient includes CT scan of the cervical spine and head without contrast. 01/07/24 01:[address] scan of the head without contrast was interpreted by the radiologist and I reviewed the impression. The impression states no acute infarction, hemorrhage or mass effect. Mild left frontotemporal subcutaneous swelling/hematoma. 01/07/24 01:12 CT scan of the cervical spine without contrast was interpreted by the radiologist and I reviewed the impression. The impression states spondylitic degenerative changes of the cervical both spine with neural foraminal stenosis. Multilevel disc bulging's with indentation of exiting nerve roots. MRI as outpatient recommended. No acute fracture or subluxation Counseled pt/family regarding: diagnosis, need for follow-up Medical Desision Making - Independent Historian Additional History obtained from: Spouse - Diagnostic Testing Diagnostic test were ordered, analyzed, and reviewed by me: Yes Radiological Interpretation: Reviewed by me, Teleradiologist Report - Risk of complications Low Risk: Low risk of morbidity from additional dx testing or treatment - Departure Departure Disposition: Home Clinical Impression: Fall with no significant injury, Skin tear of left upper extremity Condition: Stable Critical Care Time: No Referrals: [facility] [Primary Care Provider] - Follow up/PCP as directed Additional Instructions: Hold your blood thinning medicine for 24 hours. Restart on the morning of 01/08/2024. Follow the instructions for skin tear management. Call your primary care provider on the morning of 01/09/2024, to make arrangements for follow-up appointment and to be seen in the next 3 days. Avoid sedating medication, illicit drug use or alcohol use for 24 hours. Ice pack to tender areas 3-4 times a day for the next 48 hours.
[2024-01-07] MEDS ORDERED: BACIGUENT PACKET ONE (00:50)
--- NOTE | 2024-01-07 01:04 | XRAY ---
CLINICAL HISTORY: Fall injury COMPARISON: None. TECHNIQUE: An axial non-contrast CT scan of the brain was performed from the skull base to the high parietal region. One of the following dose reduction techniques was utilized for this exam: Automated exposure control, adjustment of the mA and/or kV according to patient size, and use of iterative reconstruction. FINDINGS: Brain Parenchyma: There are scattered tiny foci of decreased attenuation of the cerebral white matter, denoting microangiopathic ischemic changes. Otherwise, normal attenuation of the cerebral hemispheres, cerebellum, and brainstem. No evidence of acute infarct, hemorrhage, or mass effect. No abnormal areas of hypo- or hyperattenuation. Ventricular System: Ventricles are normal in size and configuration. No evidence of hydrocephalus or ventricular enlargement. Subarachnoid Spaces: Normal sulci and cisterns. No evidence of subarachnoid hemorrhage or extra-axial fluid collections. Cerebellum and Brainstem: Normal size and signal. No masses, lesions, or areas of abnormal signal. Orbits: Normal appearance of the globes, optic nerves, and extraocular muscles. No evidence of orbital masses or abnormal signals. Sinuses: Clear paranasal sinuses. No evidence of sinusitis or mucosal thickening. Mastoid Air Cells: Clear mastoid air cells. No evidence of mastoiditis. Skull and Meninges: Normal skull morphology. There is a mild subcutaneous swelling/hematoma at the left frontotemporal region. IMPRESSION: 1. No acute hemorrhage or mass effect. 2. Mild left frontotemporal subcutaneous swelling/hematoma. 3. Tiny foci of decreased attenuation of the cerebral white matter, denoting microangiopathic ischemic changes. Electronically Signed by: Savita Lindo MD. (01/07/2024 01:00:17 EDT)
[2024-01-07 01:07] VITALS: BP 119/63; PULSE 51; RESP 15
[2024-01-07] MEDS: BACIGUENT PACKET TP ONE (01:07)
[2024-01-07 01:10] VITALS: O2SAT 98
--- NOTE | 2024-01-07 01:10 | XRAY ---
CLINICAL HISTORY: Fall injury COMPARISON: No previous studies are available for comparison. TECHNIQUE: CT scan of the cervical spine was performed without the administration of intravenous contrast. Contiguous axial images were obtained from the skull base to the upper thoracic spine. Coronal and sagittal reformatted images were also reviewed. One of the following dose reduction techniques was utilized for this exam. Automated exposure control, adjustment of the mA and/or kV according to patient size, and use of iterative reconstruction. FINDINGS: Vertebrae: Cervical ordosis is straightened. The vertebral bodies are normal in height and alignment. No evidence of acute fracture or dislocation. The cortical and trabecular bone patterns are normal. No signs of lytic or sclerotic lesions. Normal configuration of the posterior elements. Small osteophytes at the vertebral edges noted. Atlantodens distance is narrowed with vacuum phenomenon at the sapce noted, suggestive of degenerative changes. Intervertebral Discs: The intervertebral disc spaces are preserved. There are diffuse bulging of the C3-C6 discs with indentation of the exiting nerve roots. No calcifications or ossifications noted within the discs. Facet Joints: The facet joints and uncovertebral joints show hypertrophic degenerative changes, causing neural foraminal stenosis with associated disc bulgings and dorsal osteophytes. Prevertebral Soft Tissues: The prevertebral soft tissues are normal in thickness without evidence of mass or abnormal fluid collection. Additional Findings: No other significant findings are noted in the visualized soft tissue structures or bony elements. IMPRESSION: 1. 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 2. Multilevel disc bulgings with indentation of the exiting nerve roots. 3. Further evaluation with MR recommended, if clinically warranted. Electronically Signed by: Savita Lindo MD. (01/07/2024 01:06:47 EDT)
== END 2024-01-07 01:25 | disposition home or self-care (01) ==
LOC: ED 22:58
DX: S51.812A Laceration without foreign body of left forearm, initial encounter (principal); S00.83XA Contusion of other part of head, initial encounter; W01.198A Fall on same level from slipping, tripping and stumbling with subsequent striking against other object, initial encounter; Y93.01 Activity, walking, marching and hiking; E78.5 Hyperlipidemia, unspecified; Z79.01 Long term (current) use of anticoagulants; Z79.899 Other long term (current) drug therapy
CPT/HCPCS: 70450; 72125; 99283; A9270-GY

== ENCOUNTER 2024-01-07 12:36 | Emergency (ER) | payer MEDICARE ==
[2024-01-07] MEDS ORDERED: ARZOL Silver Nitrate Applicator TP ONE ×2 (12:45→12:52)
--- NOTE | 2024-01-07 13:01 | ERPHSYRPT ---
- History of Present Illness Time Seen by Provider: 01/07/24 12:58 Source: patient Exam Limitations: no limitations Physician History: Patient has a skin abrasion. He was seen here yesterday for the same thing. The bleeding has persisted. They tried a pressure wrap at home and it did not really help. They have had to change the dressing 2 or 3 times and it has been significant amounts of bleeding. He has no signs or symptoms of anemia. His vital signs are stable and is not lightheaded or anything like that. Nothing makes his symptoms better or worse. Occurred: yesterday Allergies/Adverse Reactions: apixaban [From Eliquis] Allergy (Verified 01/07/24 13:03) bupropion [From Wellbutrin] Adverse Reaction (Severe, Verified 01/07/24 13:03) Iodinated Contrast Media Adverse Reaction (Mild, Verified 01/07/24 13:03) Hives Home Medications: Montelukast Sodium 10 mg [Singulair 10 MG] 10 mg PO DAILY 08/14/23 [History] PANTOPRAZOLE 40 mg Tablet [Protonix 40MG Tablet] 40 mg PO QAM 08/14/23 [History] Tamsulosin HCl 0.4 mg [Flomax 0.4 MG] 0.4 mg PO DAILY 08/14/23 [History] Itraconazole 2 cap PO BID 10/12/23 [History] Albuterol Common Canister [Ventolin Common Canister] 2 puff IH Q6HPRN PRN 10/20/23 [History] Nitroglycerin 0.4 mg Tablet [Nitrostat 0.4 MG Tablet] 0.4 mg SL Q5MIN PRN MR X 3 PRN 10/20/23 [History] hydrOXYzine HCL [Hydroxyzine HCl] 25 mg PO TIDPRN PRN 10/20/23 [History] Albuterol 2.5 mg/0.5 ml [PROVENTIL Solution 2.5 MG/0.5 ML] 1 neb IH QID PRN PRN 12/02/23 [History] Furosemide 20 mg [Lasix 20 mg] 1 tab PO DAILY PRN PRN 12/02/23 [History] Rivaroxaban [Xarelto] 20 mg PO EVENING MEAL 01/06/24 [History] Tiotropium Br/Olodaterol HCl [Stiolto Respimat Inhaler (60)] 2 puff IH DAILY 01/06/24 [History] Hx Tetanus, Diphtheria Vaccination/Date Given: Yes Hx Influenza Vaccination/Date Given: Yes Hx Pneumococcal Vaccination/Date Given: No Travel Risk - Emerging Infectious Disease Are you exhibiting symptoms associated with any current EIDs: No Symptoms: Shortness of Breath - Review of Systems Constitutional: No Symptoms Eyes: No Symptoms Respiratory: No Symptoms Neurological: No Symptoms - Past Medical History Pertinent Past Medical History: Yes Neurological History: No Pertinent History ENT History: No Pertinent History Cardiac History: Aneurysm, High Cholesterol Respiratory History: COPD, Emphysema, Pneumonia, Sleep Apnea Endocrine Medical History: No Pertinent History Musculoskeletal History: No Pertinent History GI Medical History: GERD Psycho-Social History: No Pertinent History Male Reproductive Disorders: Prostate Problems Other Medical History: aortic anuerysm, PET scan shows nodules in lung, DVT in left arm, histoplasmosis, 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 - Past Surgical History Past Surgical History: Yes Neuro Surgical History: No Pertinent History Cardiac: Cardiac Catheterization Respiratory: No Pertinent History Gastrointestinal: No Pertinent History Genitourinary: No Pertinent History Musculoskeletal: No Pertinent History Male Surgical History: No Pertinent History Other Surgical History: prostate, attempted lung biopsy washings, - Social History Smoking Status: Former smoker How long have you smoked: 50 years Exposure to second hand smoke: Yes Drug Use: none Patient Lives Alone: No - Social Determinants of Health Will the patient participate in the screening: Yes Do you worry about a steady place to live?: No In the past 12 months,have you had to go without utilities?: No Transportation Issues: No Has anyone in your support network made you feel unsafe?: No Have you or anyone in your house had to go without enough: No - Nursing Vital Signs Nursing Vital Signs: Initial Vital Signs Temperature 97.2 F 01/07/24 13:03 Pulse Rate 65 01/07/24 13:03 Respiratory Rate 18 01/07/24 13:03 Blood Pressure 93/64 01/07/24 13:03 O2 Sat by Pulse Oximetry 97 01/07/24 13:03 Pain Scale Pain Intensity 3 - Physical Exam General Appearance: no apparent distress Elbow/Forearm Exam: swelling (Bleeding from skin abrasions.) Neuro/Tendon Exam: normal sensation, normal motor functions, normal tendon functions Mental Status Exam: alert, oriented x 3 Skin Exam: normal color, warm - Course Nursing assessment & vital signs reviewed: Yes Ordered Tests: Active Orders 24 hr Category Date Time Status CBC W DIFF Stat Lab 01/07/24 13:15 Completed Medication Summary Discontinued Medications Generic Name Dose Route Start Last Admin Trade Name Freq PRN Reason Stop Dose Admin Silver Nitrate Confirm 01/07/24 12:45 Silver Nitrate 1 Pkt Each Administered 01/07/24 12:46 Dose 2 pkt TP .STK-MED ONE Silver Nitrate Confirm 01/07/24 12:52 Silver Nitrate 1 Pkt Each Administered 01/07/24 12:53 Dose 2 pkt TP .STK-MED ONE Silver Nitrate 4 pkt 01/07/24 13:26 01/07/24 13:28 Silver Nitrate 1 Pkt Each TP 01/07/24 13:27 4 pkt ONCE ONE Administration Lab/Rad Data: Laboratory Result Diagrams 01/07/24 13:15 Laboratory Results 01/07/24 Range/Units 13:15 WBC 6.0 (4.23-9.07) x10^3/uL RBC 3.74 L (4.63-6.08) x10^6/uL Hgb 10.3 L (13.7-17.5) g/dL Hct 30.7 L (40.1-51.0) % MCV 82.1 (79.0-92.2) fL MCH 27.5 (25.7-32.2) pg MCHC 33.6 (32.3-36.5) g/dL RDW 18.4 H (11.6-14.4) % Plt Count 310 (163-337) x10^3/uL MPV 9.5 (9.4-12.4) fL Gran % 61.1 (34.0-67.9) % Immature Gran % (Auto) 2.2 H (0.001-0.429) % Nucleat RBC Rel Count 0.0 (0.00-0.2) % Eos # (Auto) 0.09 (0.04-0.54) x10^3/uL Immature Gran # (Auto) 0.13 H (0.001-0.031) x10^3u/L Absolute Lymphs (auto) 1.18 L (1.32-3.57) x10^3/uL Absolute Monos (auto) 0.89 H (0.30-0.82) x10^3/uL Absolute Nucleated RBC 0.00 (0.00-0.012) x10^3u/L Lymphocytes % 19.8 L (21.8-53.1) % Monocytes % 14.9 H (5.3-12.2) % Eosinophils % 1.5 (0.8-7.0) % Basophils % 0.5 (0.2-1.2) % Absolute Granulocytes 3.64 (1.78-5.38) x10^3/uL Basophils # 0.03 (0.01-0.08) x10^3/uL - Progress Progress: improved Progress Note: I did some silver nitrate to some of the bleeding lesions and then put Surgicel on top of the pressure wrap. The bleeding stopped finally. Patient has lost a couple points on his hemoglobin. He is stable. He is not in transfusion territory. We are going to have him leave this pressure on for 48 hours and return symptoms worsen. 01/07/24 15:08 Medical Desision Making - Independent Historian Additional History obtained from: Spouse - External Record(s) Reviewed Records reviewed as a part of evaluation & management: Inpatient - Diagnostic Testing Diagnostic test were ordered, analyzed, and reviewed by me: Yes - Risk of complications Minimal Risk: Minimal risk of morbidity - Departure Clinical Impression: Skin tear of left upper extremity Condition: Stable Critical Care Time: No Referrals: [facility] [LOCATION] - Follow up/PCP as directed Additional Instructions: Leave the pressure dressing on for 48 hours and return if symptoms worsen.
[2024-01-07 13:04] VITALS: TEMP 97.2
[2024-01-07 13:22] LABS: Absolute Neutrophil Ct (ANC) 3.64 x10^3/uL (1.78-5.38); BASOPHIL % 0.5 % (0.2-1.2); Basophil (Absolute #) 0.03 x10^3/uL (0.01-0.08); Eosinophil % 1.5 % (0.8-7.0); Eosinophil (Absolute #) 0.09 x10^3/uL (0.04-0.54); Hematocrit 30.7 % (40.1-51.0); Hemoglobin 10.3 g/dL (13.7-17.5); IMMATURE GRAN # 0.13 x10^3u/L (0.001-0.031); IMMATURE GRAN % 2.2 % (0.001-0.429); Lymphocyte (Absolute #) 1.18 x10^3/uL (1.32-3.57); Lymphocytes % 19.8 % (21.8-53.1); Mean Cell Volume 82.1 fL (79.0-92.2); Mean Corpuscular Hemoglobin 27.5 pg (25.7-32.2); Mean Corpuscular Hgb Concent. 33.6 g/dL (32.3-36.5); Mean Platelet Volume 9.5 fL (9.4-12.4); Monocyte (Absolute #) 0.89 x10^3/uL (0.30-0.82); Monocytes % 14.9 % (5.3-12.2); Neutrophil % 61.1 % (34.0-67.9); Platelet Count 310 x10^3/uL (163-337); Red Blood Count 3.74 x10^6/uL (4.63-6.08); Red Cell Distribution Width 18.4 % (11.6-14.4)
[2024-01-07] MEDS: ARZOL Silver Nitrate Applicator TP ONE (13:28)
[2024-01-07 16:04] VITALS: RESP 18
[2024-01-07] MEDS ORDERED: Sodium Chloride 0.9% 1000 ML 1,000 ML ONE (16:12)
[2024-01-07] MEDS: Sodium Chloride 0.9% 1000 ML 1,000 ML IV STA (16:12)
[2024-01-07 17:03] VITALS: BP 124/74; PULSE 60; O2SAT 94
== END 2024-01-07 17:45 | disposition home or self-care (01) ==
LOC: ED 12:36
DX: S51.812A Laceration without foreign body of left forearm, initial encounter (principal); E78.5 Hyperlipidemia, unspecified; Z79.01 Long term (current) use of anticoagulants; Z79.899 Other long term (current) drug therapy
CPT/HCPCS: 36000; 36415; 85025; 96360; 96361; 99284; A9270-GY